=== PATIENT | female | born 1970 | race African-American/Black ===

== ENCOUNTER 2021-07-03 11:43 | Emergency (ER) | payer OTHER, BC, SELFPAY ==
--- NOTE | ~2021-07-03 | XR_ITS ---
EXAMINATION: XR forearm RT 2V EXAM DATE: 07/03/2021 14:00 INDICATION: Initial encounter following injury, with pain of the right forearm. TECHNIQUE: Right forearm frontal and lateral projections obtained and reviewed. There is no prior st udy for comparison. FINDINGS: No elbow joint effusion. There are no acute o fractures or dislocations identified. There is no subcutaneous gas. The soft tissue is unremarkable. There are no radiopaque foreign bodies. IMPRESSION: 1. XR forearm RT 2V exam without acute osseous findings. Reviewed, dictated and finalized at location A.
[2021-07-03 12:45] VITALS: BP 133/84; PULSE 71; RESP 16; TEMP 36.4; O2SAT 100
[2021-07-03] MEDS: IBUPROFEN 400 MG TABLET 800 MG PO (14:22)
--- NOTE | 2021-07-03 14:47 | ED.GENADULT ---
HPI - General Adult General Chief complaint: Extremity Injury, Upper Stated complaint: right wrist/hip pain Source: patient Mode of arrival: ambulatory Limitations: no limitations History of Present Illness HPI narrative: Patient is a 50-year-old -[place] female who presents to the [facility] via POV for evaluation of right hand and wrist injury that occurred this morning at 9:30 AM. Patient reports she was walking at school when she accidentally slipped on a wet floor. She also reports having low back pain and bilateral hip pain. Pain is constant and aching and a sore in nature. Unable to identify alleviating factors stating, I did not do anything for it I just came here . Pain worsens with when moving from sitting to standing position. She is requesting documentation for work absence. She is also requesting a primary care provider for this problem. Related Data Allergies Allergy/AdvReac Type Severity Reaction Status Date / Time No Known Allergies Allergy Verified 07/03/21 13:54 Review of Systems Review of Systems: Pertinent negatives: fever, chills, sweats, change in appetite, poor p.o. intake, malaise, calf tenderness, skin color changes, rash, warmth, swelling, numbness, tingling, loss of sensation, deformity, decreased range of motion, weakness, difficulty with ambulation/coordination, nausea, vomiting, lymphadenopathy, shortness of breath, chest pain, heart palpitations, and heart murmur. PMFSH Comments I have reviewed and agree with the patient's past medical, surgical, social, and family hx as documented by the RN. There is no relevant family history pertinent to the presenting complaint. Exam Narrative: GENERAL: Well-appearing, well-nourished, and in no acute distress. HEAD: Normocephalic, atraumatic. NECK: Supple. No Lymphadenopathy or nuchal rigidity appreciated. CHEST: Bilateral lung felton are clear to auscultation. No respiratory distress. No evidence of cough or pleuritic cp upon examination. HEART: Regular rate and rhythm. No murmur, gallop, or rub heard. BACK: Moderate pain elicited with all movement. Full ROM. No evidence of deformity, spasm, mass, spinal tenderness, or swelling. Bilateral SLR tests negative. Slowed gait. Patient ambulates hunched over. EXTREMITIES: Severe pain elicited to right wrist and right hand, bilateral hips, and right low back with any movement or palpation. Male evidence of decreased ROM, swelling, cyanosis, hematoma, laceration, abrasion, deformity, rash, or puncture. No evidence of pain with active/passive ROM. No evidence of dislocation, ligament laxity, effusion, or pain at rest. Pulses palpable at 2+, strength 5/5, and cap refill < 3 seconds in affected extremity. DTRs normal. Gait normal. SKIN: Warm, dry, no rash. NEURO: No focal deficits. Alert and oriented x3. SPECIAL OBSERVATIONS: Hyper-dramatic pain response Course Vital Signs Vital signs: Vital Signs Temperature 97.6 F 07/03/21 12:45 Pulse Rate 71 07/03/21 12:45 Respiratory Rate 16 07/03/21 12:45 Blood Pressure 133/84 07/03/21 12:45 Pulse Oximetry 100 07/03/21 12:45 Temperature 97.6 F 07/03/21 12:45 Pulse Rate 71 07/03/21 12:45 Respiratory Rate 16 07/03/21 12:45 Blood Pressure 133/84 07/03/21 12:45 Pulse Oximetry 100 07/03/21 12:45 Due to an elevated blood pressure, I had a detailed discussion with the patient and/or guardian regarding the need for follow-up with their primary care provider within the next 3-4 days. Patient verbalized understanding and agreed. Procedures Orthopedic Splinting/Casting Injury #1: Splinting/Casting Date: 07/03/21 Splinting/Casting Time: 15:06 Side: right Upper Extremity Injury Location: wrist and hand Upper Extremity Immobilizer: Naveen wrap Pre-Procedure Neuro Vascular Exam: normal Post-Procedure Neuro Vascular Exam: normal Medical Decision Making Differential Diagnosis Differential Diagnosi
== END 2021-07-03 15:25 | disposition home or self-care (01) ==
PROVIDERS: Emergency Provider Nurse Practitioner Family
DX: S63.501A Unspecified sprain of right wrist, initial encounter (principal); W01.0XXA Fall on same level from slipping, tripping and stumbling without subsequent striking against object, initial encounter; M25.552 Pain in left hip; M25.551 Pain in right hip; M54.5 Low back pain
CPT/HCPCS: 73090; 99213; A9270; G0463

== ENCOUNTER 2021-07-13 10:19 | Emergency (ER) | payer OTHER, SELFPAY ==
[2021-07-13 10:27] VITALS: BP 119/78; PULSE 100; RESP 16; TEMP 36.7; O2SAT 99
--- NOTE | 2021-07-13 10:37 | ED.GENADULT ---
HPI - General Adult General Chief complaint: Back Pain/Injury Stated complaint: back pain Source: patient Mode of arrival: ambulatory Limitations: no limitations History of Present Illness HPI narrative: Patient is a 50-year-old -[place] female who presents to the [facility] via POV for evaluation of right hand and wrist pain secondary to a work-related injury that occurred the morning of July 03, 2021. She was initially seen at this clinic for an evaluation of a right hand, low back pain, and bilateral hip pain. She was prescribed Flexeril at that visit. Today she states she is here for her low back pain. She states her right hand pain is improving. She reports her right hand has an intermittent numbness and tingling sensation. She reports her back pain is constantly achy and intermittently sharp. She also reports a burning sensation in bilateral low back. Back is stiff with prolonged sitting. She also reports prolonged walking and prolonged standing worsens back pain. No relief with ibuprofen or Aleve stating. Flexeril provided minimal relief although causes her moderate sedation therefore she is unable to take this medication while at work stating, I am fishing for something . She has an appointment on July 23 with the 07/03 referred PCP stating, I need FMLA . Related Data Allergies Allergy/AdvReac Type Severity Reaction Status Date / Time No Known Allergies Allergy Verified 07/03/21 13:54 Review of Systems Review of Systems: Pertinent negatives fever, chills, sweats, change in appetite, poor p.o. intake, malaise, skin color changes, rash, warmth, swelling, loss of sensation, deformity, bowel/bladder incontinence, decreased range of motion, weakness, difficulty with ambulation/coordination, nausea, vomiting, lymphadenopathy, shortness of breath, chest pain, heart palpitations, and heart murmur. Exam Narrative: GENERAL: Well-appearing, well-nourished, and in no acute distress. HEAD: Normocephalic, atraumatic. NECK: Supple. No Lymphadenopathy or nuchal rigidity appreciated. CHEST: Bilateral lung felton are clear to auscultation. No respiratory distress. No evidence of cough or pleuritic cp upon examination. HEART: Regular rate and rhythm. No murmur, gallop, or rub heard. BACK: Moderate pain elicited to bilateral low back with all movement. Full ROM. No evidence of deformity, spasm, mass, spinal tenderness, or swelling. Bilateral SLR tests negative. Slowed gait. No evidence of with ambulation. EXTREMITIES: No evidence of decreased ROM, swelling, cyanosis, hematoma, laceration, abrasion, deformity, rash, or puncture. No evidence of pain with active/passive ROM. No evidence of dislocation, ligament laxity, effusion, or pain at rest. Pulses palpable at 2+, strength 5/5, and cap refill < 3 seconds in affected extremity. DTRs normal. Gait normal. SKIN: Warm, dry, no rash. NEURO: No focal deficits. Alert and oriented x3. Course Vital Signs Vital signs: Vital Signs Temperature 98.0 F 07/13/21 10:27 Pulse Rate 100 07/13/21 10:27 Respiratory Rate 16 07/13/21 10:27 Blood Pressure 119/78 07/13/21 10:27 Pulse Oximetry 99 07/13/21 10:27 Temperature 98.0 F 07/13/21 10:27 Pulse Rate 100 07/13/21 10:27 Respiratory Rate 16 07/13/21 10:27 Blood Pressure 119/78 07/13/21 10:27 Pulse Oximetry 99 07/13/21 10:27 Medical Decision Making Vital Signs Vital Signs: Vital Signs Temperature 98.0 F 07/13/21 10:27 Pulse Rate 100 07/13/21 10:27 Respiratory Rate 16 07/13/21 10:27 Blood Pressure 119/78 07/13/21 10:27 Pulse Oximetry 99 07/13/21 10:27 Temperature 98.0 F 07/13/21 10:27 Pulse Rate 100 07/13/21 10:27 Respiratory Rate 16 07/13/21 10:27 Blood Pressure 119/78 07/13/21 10:27 Pulse Oximetry 99 07/13/21 10:27 Discharge Plan Discharge Clinical Impression: Low back pain Qualifiers: Chronicity: unspecified Back pain laterality: unspecified S
== END 2021-07-13 11:20 | disposition home or self-care (01) ==
PROVIDERS: Emergency Provider Nurse Practitioner Family
DX: M54.50 Low back pain, unspecified (principal)
CPT/HCPCS: 99213; G0463

== ENCOUNTER → 2021-07-18 10:31 | Outpatient (CLI) | payer OTHER, SELFPAY ==
--- NOTE | ~2021-07-18 | XR_ITS ---
XR wrist RT min 3V DATE: 07/18/2021 10:51 INDICATION: Fall. Right wrist injury, pain TECHNIQUE: 4 views COMPARISON: None FINDINGS: No fracture or dislocation, periosteal reaction or bone destruction. No erosive change or c hondrocalcinosis. IMPRESSION: No significant abnormality Reviewed, dictated and finalized at location B. IMPRESSION: No significant abnormality
--- NOTE | ~2021-07-18 | XR_ITS ---
XR hand RT min 3V DATE: 07/18/2021 10:51 INDICATION: Right hand or wrist pain following fall TECHNIQUE: 3 views COMPARISON: None FINDINGS: No fracture or dislocation, periosteal reaction or bone destruction or erosive change or ch ondrocalcinosis. Joint spaces are preserved. IMPRESSION: Negative Reviewed, dictated and finalized at location B. IMPRESSION: Negative
== END ==
PROVIDERS: PCP Emergency Medicine; Visit Provider Emergency Medicine
DX: M25.531 Pain in right wrist (principal); M25.541 Pain in joints of right hand
CPT/HCPCS: 73110; 73130

== ENCOUNTER 2022-06-25 15:54 | Emergency (ER) | payer BC, SELFPAY ==
[2022-06-25 16:01] VITALS: BP 102/74; PULSE 73; RESP 16; TEMP 36.3; O2SAT 99
--- NOTE | 2022-06-25 16:43 | ED.GENADULT ---
HPI - General Adult General Chief complaint: Skin/Abscess/Foreign Body Stated complaint: rash Source: patient Mode of arrival: ambulatory Limitations: no limitations History of Present Illness HPI narrative: Patient presents for evaluation of pruritic rash to the face and neck for the last week. No new lotions, soaps, detergents, topical products. No history of similar symptoms. She has been outdoors but does not remember being exposed to poison rika/oak/sumac. She has been applying calamine and also taking 50mg benadryl orally every four hours for her symptoms. No additional complaints or concerns. Related Data Allergies Allergy/AdvReac Type Severity Reaction Status Date / Time No Known Allergies Allergy Verified 06/25/22 16:29 Review of Systems Review of Systems: CONSTITUTIONAL: Denies fever, chills, or sweats. EYES: Denies visual changes, redness, or discharge. ENT: Denies rhinorrhea, congestion, sore throat, or otalgia. CARDIOVASCULAR: Denies chest pain, palpitations, or edema. RESPIRATORY: Denies cough or dyspnea. GASTROINTESTINAL: Denies abdominal pain, nausea, vomiting, or diarrhea. GENITOURINARY: Denies dysuria or hematuria. SKIN: Reports pruritic rash to neck and face MUSCULOSKELETAL: Denies back pain, joint pain, or myalgia. NEUROLOGIC: Denies headache, numbness, dizziness, or weakness. PSYCHIATRIC: Denies anxiety or depression. [facility] Past Medical History Medical History (Updated 06/25/22 @ 16:47 by Storm Navarrete, [facility], ) No pertinent past medical history Surgical History Surgical History No pertinent past surgical history Family History Family History Mother Family history non-contributory Social History Social History Smoking status: Never smoker Substance use: never Gender identity (if verbalized by the patient): Female Spiritual care concerns: No Exam Narrative: GENERAL: Well-appearing, well-nourished, and in no acute distress. HEAD: Normocephalic, atraumatic. EYES: PERRLA and EOMI. ENT: Nares clear, no rhinorrhea or epistaxis. Mucous membranes moist. Oropharynx without tonsillar hypertrophy exudate or other lesions. Bilateral TMs pearly viera nonbulging NECK: Supple. No adenopathy or masses. No carotid bruits or JVD CHEST: Clear to auscultation. No respiratory distress. No wheezes rales or rhonchi HEART: Regular rate and rhythm. No murmur heard. Normal peripheral pulses. ABDOMEN: Soft, nontender, nondistended, normal active bowel sounds. EXTREMITIES: Normal range of motion. No edema. SKIN: Slightly raised, fine, erythematous sandpaper rash to face and neck NEURO: No focal deficits. Alert and oriented x3. PSYCH: Normal mood and affect. Course Course Emergency Course: This is a 51-year-old female who presented for evaluation of a rash for the last week. Rash is a sandpaperlike quality. I did confirm multiple times that patient does not have a sore throat consistent with strep pharyngitis. On physical exam her posterior pharynx appears normal. Etiology of symptoms unclear. She was given Solu-Medrol while here. She will be discharged with prednisone. Changed Benadryl to Vistaril. Follow-up outpatient for further evaluation and treatment and go to the ER for worsening symptoms. Patient in agreement with plan of care. Level of Care: Express Care Visit Vital Signs Vital signs: Vital Signs Temperature 36.3 C L 06/25/22 16:01 Pulse Rate 73 06/25/22 16:01 Respiratory Rate 16 06/25/22 16:01 Blood Pressure 102/74 06/25/22 16:01 Pulse Oximetry 99 06/25/22 16:01 Oxygen Delivery Room Air 06/25/22 16:01 Temperature 36.3 C L 06/25/22 16:01 Pulse Rate 73 06/25/22 16:01 Respiratory Rate 16 06/25/22 16:01 Blood Pressure 102/74 06/25/22 16:01 Pulse Oximetry 99 06/25
[2022-06-25] MEDS: methylPREDNISolone SOD SUCC 125 MG VIAL IM (16:54)
== END 2022-06-25 17:03 | disposition home or self-care (01) ==
PROVIDERS: Emergency Provider Nurse Practitioner
DX: R21 Rash and other nonspecific skin eruption (principal)
CPT/HCPCS: 96372; 99213; G0463; J2930

== ENCOUNTER 2022-07-01 11:58 | Emergency (ER) | payer BC, SELFPAY ==
--- NOTE | 2022-07-01 12:05 | ED.URI ---
HPI - URI/Sore Throat General Chief Complaint: Weakness Stated Complaint: SOB, Blurry Vision, Headaches Time Seen by Provider: 07/01/22 12:06 Source: patient Mode of arrival: ambulatory Limitations: no limitations History of Present Illness HPI Narrative: Ms. Loredo is a 51-year-old female patient presenting to the clinic today with complaints of shortness of breath, blurry vision, and headaches x1 week. She reports she has been taking iron pills over the last week because she feels as though she may be anemic. States that the iron pills have been making her feel constipated as well. States that she is having shortness of breath with exertion, headaches, extreme fatigue, and blurry vision. She is requesting blood work to be done. Related Data Home Medications Medication Instructions Recorded Confirmed No Home Medications 07/01/22 07/01/22 Allergies Allergy/AdvReac Type Severity Reaction Status Date / Time No Known Allergies Allergy Verified 07/01/22 12:17 Review of Systems Review of Systems: Pertinent positives per HPI. Patient denies any fever, chills, rash, dizziness, cough, runny nose, sore throat, chest pain, palpitations, nausea, vomiting, diarrhea, constipation, abdominal pain, or any urinary issues. [facility] Past Medical History Medical History (Updated 07/01/22 @ 14:02 by Jo Ann Bansal MD) Anemia Surgical History Surgical History No pertinent past surgical history Family History Family History Mother Family history non-contributory Social History Social History Smoking status: Never smoker Substance use: never Gender identity (if verbalized by the patient): Female Spiritual care concerns: No Comments At the time of my signature, I reviewed and agree with the nursing past medical, surgical, social, and family history. There is no relevant family history pertinent to the patient complaint. Exam Narrative: General: Well-developed, well nourished, in no apparent distress Head: Normocephalic, atraumatic Eyes: Pupils equally round and reactive to light bilaterally, EOM intact, sclera and conjunctive clear, no discharge, lids normal Ears: TMs intact and clear, ear canals clear, no drainage, grossly hearing normal. Nose: Nares patent, no discharge, no inflammation, no sinus tenderness. Mouth: Oropharynx without lesions or masses, good dentition, MMM. Neck: Supple, trachea midline, no enlargement of anterior or posterior cervical nodes, no thyroid masses or goiter palpable. Cardio: Regular rate and rhythm, s1 and s2 normal, no murmur appreciated. Resp: Clear to auscultation bilaterally anteriorly and posteriorly, no rhonchi, rales, wheezing or rubs Course Course Emergency Course: Portions of this record may have been created with voice recognition software. Level of Care: Express Care Visit Vital Signs Vital signs: Vital Signs Temperature 36.2 C L 07/01/22 12:10 Pulse Rate 69 07/01/22 12:10 Respiratory Rate 16 07/01/22 12:10 Blood Pressure 143/75 H 07/01/22 12:10 Pulse Oximetry 100 07/01/22 12:10 Oxygen Delivery Room Air 07/01/22 12:10 Temperature 36.2 C L 07/01/22 12:10 Pulse Rate 69 07/01/22 12:10 Respiratory Rate 16 07/01/22 12:10 Blood Pressure 143/75 H 07/01/22 12:10 Pulse Oximetry 100 07/01/22 12:10 Oxygen Delivery Room Air 07/01/22 12:10 Vital signs reviewed MDM - URI/Sore Throat MDM Narrative Medical decision making narrative: At the time of visit patient is resting comfortably on the exam table. EKG was performed and show normal sinus rhythm heart rate 64 bpm. Blood sugar was 135 in the clinic today. Patient would like to be transferred to the ED for further evaluation/blood work-up. Contacted Storm GARG at [facility] ED and he
[2022-07-01 12:10] VITALS: BP 143/75; PULSE 69; RESP 16; TEMP 36.2; O2SAT 100
--- NOTE | 2022-07-01 12:19 | ECG_ITS ---
Measurements Intervals [place] Rate: 64 P: 68 GA: 195 QRS: 49 QRSD: 82 T: 52 QT: 396 QTc: 410 Interpretive Statements SINUS RHYTHM T WAVE ABNORMALITY IN ANTERIOR LEADS- CONSIDER ISCHEMIA ABNORMAL ECG NO PREVIOUS ECG AVAILABLE FOR COMPARISON Electronically Signed On 07-01-2022 13:15:19 CDT by Anderson Godwin D.O.
[2022-07-01 12:28] LABS: Glucose Point of Care 135 mg/dl (65-105)
== END 2022-07-01 12:32 | disposition short-term general hospital (02) ==
PROVIDERS: Emergency Provider Nurse Practitioner Family; PCP Registered Nurse
DX: H53.8 Other visual disturbances (principal); R06.02 Shortness of breath; R53.83 Other fatigue
CPT/HCPCS: 82948; 93005; 99213; G0463

== ENCOUNTER 2022-07-01 12:47 | Emergency (ER) | payer BC, SELFPAY ==
[2022-07-01] VITALS (14 sets, daily range): BP systolic 157–180; BP diastolic 87–88; PULSE 63–73; RESP 15–23; TEMP 36.4; O2SAT 95–100
--- NOTE | ~2022-07-01 | XR_ITS ---
EXAMINATION: XR chest 2V 07/01/2022 13:32 INDICATION: Shortness of breath for 3 days PROCEDURE: 2 view chest COMPARISON: No prior studies for comparison. FINDINGS: The lungs are clear. The cardiomediastinal silhouette is within normal limits. There are no pleural effusions. There is no pneumothorax suspected. IMPRESSION: 1: NO ACUTE CARDIOPULMONARY DISEASE. Reviewed, dictated and finalized at location B.
--- NOTE | 2022-07-01 12:56 | ECG_ITS ---
Measurements Intervals [place] Rate: 64 P: 68 [place]: 190 QRS: 38 QRSD: 80 T: 46 QT: 395 QTc: 410 Interpretive Statements SINUS RHYTHM BORDERLINE ST-T WAVE ABNORMALITY- ANTERIOR LEADS BORDERLINE ECG COMPARED TO ECG 07/01/2022 12:31:08 NO SIGNIFICANT CHANGES Electronically Signed On 07-01-2022 13:16:02 CDT by Anderson Godwin D.O.
[2022-07-01 13:16] LABS: Basophils Absolute Auto 0.1 K/mm3 (0.0-0.1); Basophils Percent Auto 0.6 % (0.2-1.2); Eosinophils Absolute Auto 0.1 K/mm3 (0-0.3); Eosinophils Percent Auto 1.1 % (0-4.4); Hematocrit 33.4 % (37.0-47.0); Hemoglobin 10.2 g/dL (12.0-15.0); Immature Granulocyte Absolute 0.09 K/mm3 (0.00-0.031); Immature Granulocyte Percent A 0.7 % (0-0.5); Lymphocytes Absolute Auto 2.45 K/mm3 (0.9-3.2); Lymphocytes Percent Auto 19.9 % (18.3-44.2); Mean Corpuscular HGB Conc 30.5 g/dl (32-36); Mean Corpuscular Hemoglobin 21.4 pg (26-34); Mean Corpuscular Volume 70.2 fl (80-100); Mean Platelet Volume 9.3 fl (7.4-10.4); Monocytes Absolute Auto 1.1 K/mm3 (0.1-0.6); Monocytes Percent Auto 8.9 % (2.6-8.5); Neutrophils Absolute Auto 8.5 K/mm3 (1.3-6.7); Neutrophils Percent Auto 68.8 % (45.5-73.1); Platelet Count Result 329 k/mm3 (150-375); Red Blood Count 4.76 M/mm3 (4.2-5.4); Red Cell Distribution Width 23.6 % (11.5-14.5); White Blood Count 12.3 K/mm3 (4.5-10.0)
[2022-07-01 13:32] LABS: Platelet Estimate Adequate (Adequate)
[2022-07-01 13:33] LABS: Microcytosis 1+ (NORMAL); Schistocytes None Seen (NORMAL)
[2022-07-01 13:35] LABS: Alanine Aminotransferase 39 U/L (6-35); Alkaline Phosphatase 56 U/L (38-126); Anion Gap 9 mmol/L (8-16); Aspartate Amino Transferase 27 U/L (14-36); Bilirubin,Total 0.4 mg/dL (0.2-1.3); Blood Urea Nitrogen 12 mg/dL (7-17); Calcium 8.8 mg/dL (8.4-10.2); Carbon Dioxide 28 mmol/L (22-30); Chloride 98 mmol/L (98-107); Estimated CRCL calculation 71 ml/min; Estimated Glomerular Filt Rate > 60; Glucose 100 mg/dL (65-110); Potassium 2.7 mmol/L (3.4-5.0); Sodium 135 mmol/L (137-145)
--- NOTE | 2022-07-01 13:53 | ED.SOB ---
HPI - SOB/Dyspnea General Chief Complaint: Shortness of Breath/Dyspnea Stated Complaint: sob, blurred vision x 4 days Time Seen by Provider: 07/01/22 13:02 Source: patient and RN notes reviewed Mode of arrival: ambulatory Limitations: no limitations History of Present Illness HPI Narrative: This is a 51 year old female who presents for shortness of breath. She reports fatigue for 3 days with shortness of breath with exertion. She also reports dull ache frontal headache for 3 days. She has no focal weakness. She denies fever, chills, chest pain, nausea, vomiting, diarrhea. She reports history of anemia and she started taking iron 1 week ago. She reports abdominal bloating and constipation. Related Data Allergies Allergy/AdvReac Type Severity Reaction Status Date / Time No Known Allergies Allergy Verified 07/01/22 12:17 Review of Systems Review of Systems: All systems reviewed & are unremarkable except as noted in HPI and below Constitutional: Constitutional: Denies chills, Reports fatigue and Denies fever(s) Eyes: Eyes: Reports change in vision and Denies photophobia ENT: Denies nasal congestion and Denies sore throat Cardiovascular: Cardiovascular: Denies chest pain and Denies radiating jaw, neck or arm pain Respiratory: Respiratory: Denies cough and Reports dyspnea Gastrointestinal: Gastrointestinal: Denies abdominal pain, Reports constipation and Reports nausea Neurologic: Denies syncope, Reports headache(s) and Denies focal weakness PMFSH Past Medical History Medical History (Updated 07/01/22 @ 16:23 by Jo Ann Bansal MD) Anemia Surgical History Surgical History No pertinent past surgical history Family History Family History Mother Family history non-contributory Social History Social History Smoking status: Never smoker Substance use: never Gender identity (if verbalized by the patient): Female Spiritual care concerns: No Exam Narrative: GENERAL: Well-appearing, well-nourished, and in no acute distress. HEAD: Normocephalic, atraumatic EYES: PERRLA and EOMI, conjunctiva clear without discharge EARS: TM's clear bilaterally without erythema or dullness NOSE: Nares clear, no rhinorrhea or epistaxis THROAT:Mucous membranes moist, Oropharynx normal without erythema, exudate, peritonsillar swelling or fluctuance NECK: Supple, without lymphadenopathy or mass RESPIRATORY: No respiratory distress, Airway patent, Respirations non-labored, Clear to auscultation without rales, rhonchi or wheeze HEART: Regular rate and rhythm. No murmur heard. Normal peripheral pulses. ABDOMEN: Soft, nontender, nondistended, normal active bowel sounds. No masses. No rebound or guarding, No organomegaly. EXTREMITIES: No edema, normal strength with full range of motion. SKIN: Warm, dry, normal color without rash NEURO: Alert and oriented x3. CN 2-12 grossly intact. No focal deficits. PSYCH: Normal mood and affect. Course Reevaluation(s) Reevaluation #1: I reviewed patient's labs and imaging. Vitals have been unremarkable. She feels better. She will be discharged home.. She is aware of anemia and hypokalemia. She has appointment with doctor on . She will have them to check her potassium. Date: 07/01/22 Time: 16:20 Vital Signs Vital signs: Vital Signs Pulse Rate 66 07/01/22 13:01 Respiratory Rate 20 07/01/22 13:01 Temperature 97.5 F L 07/01/22 13:04 Pulse Rate 73 07/01/22 16:35 Respiratory Rate 18 07/01/22 16:35 Blood Pressure 180/87 H 07/01/22 16:35 Pulse Oximetry 99 07/01/22 16:35 Oxygen Delivery Room Air 07/01/22 13:27 MDM - SOB/Dyspnea Lab Data Attestation: I reviewed the patient's lab results. Result diagrams: 07/01/22 13:09
[2022-07-01 14:11] LABS: Magnesium 2.1 mg/dL (1.6-2.3)
[2022-07-01 14:24] LABS: NT Pro B Type Natriuretic Pept 75 pg/mL (5-100); Troponin I < 0.012 ng/mL (0.000-0.034)
[2022-07-01 14:33] LABS: SARS-CoV-2 RNA PCR Negative
[2022-07-01 14:40] LABS: D Dimer 0.39 ug/mL (<0.48)
[2022-07-01] MEDS: SODIUM CHLORIDE 0.9% IV 1,000 ML 999 ML IV CONT (14:43)
[2022-07-01] MEDS: POTASSIUM CHLORIDE 20 MEQ TABLET 40 MEQ PO (14:43)
[2022-07-01] MEDS: KETOROLAC 30 MG/ML VIAL (*BKC) IV PUSH (15:17)
== END 2022-07-01 16:37 | disposition home or self-care (01) ==
PROVIDERS: Emergency Medicine; Emergency Provider General Practice; PCP Registered Nurse
DX: D64.9 Anemia, unspecified (principal); E87.6 Hypokalemia; Z20.822 Contact with and (suspected) exposure to COVID-19; R94.31 Abnormal electrocardiogram [ECG] [EKG]
CPT/HCPCS: 36415; 71046; 80053; 83735; 83880; 84484; 85025; 85380; 93005; 96361; 96374; 99284; A9270; C9803; J1885; J7030; U0003; U0005

== ENCOUNTER 2024-05-26 19:41 | Emergency (ER) | payer BC, SELFPAY ==
[2024-05-26 19:49] VITALS: BP 123/84; PULSE 73; RESP 20; TEMP 37; O2SAT 100
--- NOTE | 2024-05-26 19:50 | ED.SKABFB ---
HPI - Skin/Abscess/Foreign Bdy General Chief complaint: Skin/Abscess/Foreign Body Stated complaint: Rash Time Seen by Provider: 05/26/24 19:50 Source: patient, RN notes reviewed and old records reviewed Mode of arrival: ambulatory Limitations: no limitations History of Present Illness HPI narrative: 53-year-old female presents to the [facility] with complaints of a dry patchy area to the left lower quadrant of the abdomen. Reports that she has tried hydrocortisone, Neosporin to the area. A dry patch to the medial aspect right foot/heel Symptoms started approximately 1 week ago Related Data Home Medications Medication Instructions Recorded Confirmed No Home Medications 05/26/24 05/26/24 Allergies Allergy/AdvReac Type Severity Reaction Status Date / Time No Known Allergies Allergy Verified 05/26/24 19:46 Review of Systems Review of Systems: All systems reviewed & are unremarkable except as noted in HPI and below Constitutional: Constitutional: Reports no additional constitutional complaints Eyes: Eyes: Reports no additional eye complaints ENT: Reports system reviewed and no additional complaints, except as documented Cardiovascular: Cardiovascular: Reports no additional cardiovascular complaints, Denies chest pain and Denies dyspnea Respiratory: Respiratory: Reports no additional respiratory complaints, Denies chest congestion, Denies cough and Denies dyspnea Gastrointestinal: Gastrointestinal: Reports no additional gastrointestinal complaints, Denies abdominal pain, Denies nausea and Denies vomiting Musculoskeletal: Musculoskeletal: Reports no additional musculoskeletal complaints Integumentary/Breasts: Skin/Breast: Reports as per HPI Neurologic: Reports system reviewed and no additional complaints, except as documented Psychiatric: Psychiatric: Reports no additional psychiatric complaints Allergic/Immunologic: Allergic/Immunologic: Reports no additional allergic/immunologic complaints [facility] Past Medical History Medical History Anemia Surgical History Surgical History No pertinent past surgical history Family History Family History Mother Family history non-contributory Social History Social History Smoking status: Never smoker Substance use: never Gender identity (if verbalized by the patient): Female Spiritual care concerns: No Comments At the time of my signature, I reviewed and agree with the nursing past medical, surgical, social, and family history. There is no relevant family history pertinent to the patient complaint. Exam Const: General: cooperative, healthy appearing, comfortable, no acute distress, well developed, alert and well nourished Nutritional Appearance: well nourished Orientation/consciousness: patient oriented x3 Limitations: no limitations HENMT: Head: normal to inspection Ears: hearing grossly normal bilaterally and external ears normal Face/Nose/Sinus: Normal external nose present, Normal nares present, Normal nasal mucous membranes and turbinates present, normal facial exam and face symmetric Face and sinus: normal facial exam and face symmetric Eyes: General: appearance normal, both eyes and all related structures Alignment and Position: alignment normal Periorbital: periorbital findings normal Pupils: Equal, round and reactive pupils present EOM: EOMs intact bilaterally Neck: Neck: normal visual inspection, full ROM, no lymphadenopathy and no meningeal signs Chest: Chest palpation & inspection: normal inspection of the chest Resp: Effort & Inspection: normal respiratory effort and able to speak in complete sentences Auscultation: clear to auscultation bilaterally, no crackles, no rales, no rhonchi and no wheezes Cardio: Rate: r
== END 2024-05-26 20:05 | disposition home or self-care (01) ==
PROVIDERS: Emergency Provider Nurse Practitioner; PCP Registered Nurse
DX: L30.9 Dermatitis, unspecified (principal)
CPT/HCPCS: 99213; G0463

== ENCOUNTER 2024-10-07 15:48 | Emergency (ER) | payer OTHER, BC, SELFPAY ==
[2024-10-07 16:05] VITALS: BP 155/91; PULSE 94; RESP 16; TEMP 36.8; O2SAT 100
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
== END 2024-10-07 17:15 | disposition home or self-care (01) ==
PROVIDERS: Emergency Provider Nurse Practitioner Family; PCP Registered Nurse
DX: M54.9 Dorsalgia, unspecified (principal); V89.2XXA Person injured in unspecified motor-vehicle accident, traffic, initial encounter
CPT/HCPCS: 99213; G0463

== ENCOUNTER 2025-06-11 08:17 | Emergency (ER) | payer BC, SELFPAY ==
[2025-06-11 08:30] VITALS: BP 156/84; PULSE 73; RESP 20; TEMP 36.7; O2SAT 97
--- NOTE | 2025-06-11 08:40 | ED_ITS ---
HPI - Female Genitourinary General Chief complaint: Urogenital-Female Stated complaint: urinary irritation Time Seen by Provider: 06/11/25 08:19 patient presents to the [facility] with complaints urinary frequency, bladder pressure, and burning with urination that began 1 week ago. Patient reports she has had some leakage and has been wearing panty liners in the last 2 days has had some vaginal irritation and discharge believes to be related to yeast infection the panty liners. Noted she has been drinking cranberry juice without relief of symptoms. Denies history of frequent UTI or hard to treat UTI. Denies fever, chills, body aches, abdominal pain lower back pain, flank pain, blood in urine, nausea, vomiting, diarrhea. Related Data Allergies Allergy/AdvReac Type Severity Reaction Status Date / Time No Known Allergies Allergy Verified 06/11/25 08:25 Review of Systems Constitutional: Constitutional: Reports as per HPI, Denies chills and Denies fatigue Eyes: Eyes: Reports no additional eye complaints Cardiovascular: Cardiovascular: Reports no additional cardiovascular complaints Respiratory: Respiratory: Reports no additional respiratory complaints Gastrointestinal: Gastrointestinal: Reports as per HPI, Denies abdominal pain ( Bladder pressure), Denies diarrhea, Denies nausea and Denies vomiting Genitourinary: Genitourinary: Reports as per HPI, Denies abnormal vaginal bleeding, Denies hematuria, Reports nocturia, Denies genital lesions, Reports dysuria, Denies pelvic pain, Denies flank pain, Reports urinary incontinence and Reports vaginal discharge Musculoskeletal: Musculoskeletal: Reports as per HPI and Denies back pain Integumentary/Breasts: Skin/Breast: Reports as per HPI, Denies pruritus, Denies erythema and Denies rash Neurologic: Reports as per HPI, Denies vertigo, Denies dizziness, Denies syncope, Denies headache(s), Denies numbness and Denies weakness Psychiatric: Psychiatric: Reports no additional psychiatric complaints Endocrine: Endocrine: Reports no additional endocrine complaints Hematologic/Lymphatic: Hematologic/Lymphatic: Reports no additional hematologic/lymphatic complaints Allergic/Immunologic: Allergic/Immunologic: Reports no additional allergic/immunologic complaints PMFSH Past Medical History Medical History Anemia Surgical History Surgical History No pertinent past surgical history Family History Family History Mother Family history non-contributory Social History Social History Smoking status: Never smoker Substance use: never Gender identity (if verbalized by the patient): Female Spiritual care concerns: No Exam Const: General: healthy appearing and no acute distress Nutritional Appearance: well nourished Orientation/consciousness: patient oriented x3 Limitations: no limitations Resp: Effort & Inspection: normal respiratory effort Auscultation: clear to auscultation bilaterally Cardio: Rate: regular rate Rhythm: regular rhythm GI: Inspection: non-distended GI Palp: Yes Soft to palpation, No Tenderness to palpation present (GI), No Guarding due to palpation present (GI), No Rigid due to palpation and No Hernia present Auscultation: normal bowel sounds : General: Yes bladder normal to palpation and Yes no CVA tenderness Back/Spine/Pelvis: Back: no CVA tenderness Skin: General skin exam: normal color Rashes: no rashes Wounds: no wounds Neuro: General: patient oriented x3 Speech: normal speech Gait exam (Neuro): Normal gait present Psych: Appearance: grossly normal Mental Status: mental status grossly normal Affect: normal affect Attitude: cooperative Course Course Level of Care: Express Care Visit Vital Signs Vital signs: Vital Signs Temperature 98.0 F 06/11/25 08:30 Pulse Rate 73 06/11/25 08:30 Respiratory Rate 20 06/11/25 08:30 Blood Pressure 156/84 H 06/11/25 08:30 Pulse Oximetry 97 06/11/25 08:30 Oxygen Delivery Room Air 06/11/25 08:30 Temperature 98.0 F 06/11/25 08:30 Pulse Rate 73 06/11/25 08:30 Respiratory Rate 20 06/11/25 08:30 Blood Pressure 156/84 H 06/11/25 08:30 Pulse Oximetry 97 06/11/25 08:30 Oxygen Delivery Room Air 06/11/25 08:30 MDM - Female Genitourinary MDM Narrative Medical decision making narrative: The patient was evaluated by myself in the express care. History is obtained from patient who is an independent historian and physical exam was performed. Available medical records were reviewed at this time. Exam findings show no acute concerns or changes; patient is non-toxic appearing and is in no distress. Patient is appropriate for outpatient treatment and follow-up. I have evaluated and discussed social determinants of health with the patient that could potentially impact subsequent diagnosis and treatment plans. Differential diagnosis and treatment plan were discussed with the patient. Patient agrees with discussion and after shared medical decision making agrees with plan of care. All questions were answered to the patient's satisfaction. Differential Diagnosis Differential diagnosis: Likely urinary tract infection, cervicitis, vaginitis and cystitis Medical Records Attestation: I reviewed the patient's medical records. Lab Data Attestation: I reviewed the patient's lab results. Lab results narrative: hematuria noted send culture Discharge Plan Discharge Clinical Impression: Cystitis Patient Disposition: Home Condition: Stable Instructions: Antibiotic Form, Urinary Tract Infection in Women (ED), Dysuria (ED) Additional Instructions: We will send a urine culture off to the lab; if the culture identifies an organism that the prescribed antibiotic will not treat, you will receive a phone call from an urgent care staff member and an appropriate antibiotic will be prescribed. -Your symptoms should begin to improve within a day of starting antibiotics. But you should finish all the antibiotic pills you get. Otherwise your infection might come back. -Also recommend: drink more fluid. It might help flush out germs, and it does no harm -Tylenol/ibuprofen as needed for pain -Follow-up with your primary care provider for urine recheck OR if your symptoms persist, change or worsen significantly before you can contact your personal physician then please, without delay, go to the emergency department for further evaluation. Patient Language: Serbian Prescriptions: New fluconazole 150 mg tablet 150 mg PO Q72H Qty: 2 0RF nitrofurantoin monohyd/m-cryst [Macrobid] 100 mg capsule 100 mg PO Q12H 5 Days Qty: 10 0RF Rx Instructions: must administer with a meal/food phenazopyridine [Pyridium] 200 mg tablet 200 mg PO TID Qty: 6 0RF Follow-up/Referrals: Leslie,TRINO Shah [Primary Care Provider] Time of Disposition: 08:48
[2025-06-11 08:41] LABS: EDUAAPPEAR Clear; EDUABILI Negative (Negative); EDUABLOOD 2+ (Negative); EDUACOLOR1 Yellow; EDUAGLUCOSE Negative (Negative); EDUAKETONE Negative (Negative); EDUALEUKO Negative (Negative); EDUANITRATE Negative (Negative); EDUAPH 6.5; EDUAPROTEIN Negative (Negative); EDUASPGRAVITY 1.015; EDUAUROBILI 0.2
== END 2025-06-11 09:01 | disposition home or self-care (01) ==
PROVIDERS: Emergency Provider Nurse Practitioner Family; PCP Registered Nurse
DX: N30.90 Cystitis, unspecified without hematuria (principal)
CPT/HCPCS: 81003; 87086; 99213; G0463

== ENCOUNTER 2025-06-27 01:47 | Observation (INO) | payer BC, SELFPAY ==
--- OUTSIDE RECORDS SUMMARY | 2015-11-01 19:00 | XMS_ITS | Continuity of Care Document ---
Author Organization [facility] Address [address] [place] [address] [address] [place] [address] Phone Care Team Providers Care Contract Forester Name Role Phone Therapist, Test Unavailable Unavailable Procedures Procedure Date PT RE-EVALUATION THERAPEUTIC EXERCISES NEUROMUSCULAR RE-ED MANUAL THERAPY FUNC ACTIVITY HOT/COLD PACK ELECTRIC STIMULATION UNATT THERAPEUTIC EXERCISES NEUROMUSCULAR RE-ED MANUAL THERAPY FUNC ACTIVITY HOT/COLD PACK ELECTRIC STIMULATION UNATT THERAPEUTIC EXERCISES NEUROMUSCULAR RE-ED MANUAL THERAPY FUNC ACTIVITY HOT/COLD PACK ELECTRIC STIMULATION UNATT THERAPEUTIC EXERCISES NEUROMUSCULAR RE-ED MANUAL THERAPY FUNC ACTIVITY HOT/COLD PACK ELECTRIC STIMULATION UNATT THERAPEUTIC EXERCISES NEUROMUSCULAR RE-ED MANUAL THERAPY FUNC ACTIVITY HOT/COLD PACK ELECTRIC STIMULATION UNATT PT RE-EVALUATION THERAPEUTIC EXERCISES NEUROMUSCULAR RE-ED MANUAL THERAPY FUNC ACTIVITY HOT/COLD PACK ELECTRIC STIMULATION UNATT THERAPEUTIC EXERCISES NEUROMUSCULAR RE-ED MANUAL THERAPY FUNC ACTIVITY HOT/COLD PACK ELECTRIC STIMULATION UNATT THERAPEUTIC EXERCISES NEUROMUSCULAR RE-ED MANUAL THERAPY FUNC ACTIVITY HOT/COLD PACK ELECTRIC STIMULATION UNATT THERAPEUTIC EXERCISES NEUROMUSCULAR RE-ED MANUAL THERAPY FUNC ACTIVITY HOT/COLD PACK ELECTRIC STIMULATION UNATT PT RE-EVALUATION THERAPEUTIC EXERCISES NEUROMUSCULAR RE-ED FUNC ACTIVITY HOT/COLD PACK ELECTRIC STIMULATION UNATT THERAPEUTIC EXERCISES NEUROMUSCULAR RE-ED FUNC ACTIVITY HOT/COLD PACK ELECTRIC STIMULATION UNATT THERAPEUTIC EXERCISES NEUROMUSCULAR RE-ED MANUAL THERAPY FUNC ACTIVITY HOT/COLD PACK ELECTRIC STIMULATION UNATT THERAPEUTIC EXERCISES FUNC ACTIVITY NEUROMUSCULAR RE-ED MANUAL THERAPY HOT/COLD PACK ELECTRIC STIMULATION UNATT THERAPEUTIC EXERCISES FUNC ACTIVITY HOT/COLD PACK ELECTRIC STIMULATION UNATT PT EVALUATION THERAPEUTIC EXERCISES HOT/COLD PACK ELECTRIC STIMULATION UNATT Electrodes Advance Directives Directive Yes / No Effective Date File Name No Information Encounters Encounter Description Practice Location Reason(s) For Visit Diagnoses Date Provider Providers Copied on Encounter [facility] [address], [place], [place], [id number], [place] tel:[phone] Stephan No Information 6 Therapist Test. [address], [address], [place], [address], [place]. tel:[phone] Referring Provider: Test Therapist, [address] [place] [address], [facility]. tel:[phone], [id number], tel:[phone] Stephan No Information J Carlos-0 5-201 5 Valdivia April. [address] [place] [address], [address], [place], [facility], . tel:[phone] Referring Provider: Ed Dupree, [address] [facility] [address], [place], [address]. tel:[phone], [id number], tel:[phone] Stephan No Information J Carlos-0 2-201 5 Valdivia April. [address] [place] [address], [facility] [address], [place], [facility], . tel:[phone] Referring Provider: Ed Dupree, [address] [facility] [address], [place], [address]. tel:[phone], [id number], tel:[phone] Stephan No Information Dec-2 9-201 4 Valdivia April. [address] [place] [address], [address], [place], [facility], . tel:[phone] Referring Provider: Ed Dupree, [address] [facility] [address], [place], [address]. tel:[phone], [id number], tel:[phone] Stephan No Information Dec-2 2-201 4 Valdivia April. [address] [place] [address], [address], [place], [facility], . tel:[phone] Referring Provider: Ed Dupree, [address] [facility] [address], [place], [address]. tel:[phone], [place], [place], [id number], [place] tel:[phone] Stephan No Information Dec-1 9-201 4 Valdivia April. [address] [place] [address], [address], [place], [address], [place]. tel:[phone] Referring Provider: Ed Dupree, [address] [facility] [address], [place], [address]. tel:[phone], [place], [place], [address], [place] tel:[phone] Stephan No Information Dec-0 3-201 4 Valdivia April. [address] [place] [address], [address], [place], [address], [place]. tel:[phone], [place], [place], [id number], [place] tel:[phone] Stephan No Information Dec-0 1-201 4 Valdivia April. [address] [place] [address], [address], [place], [address], [place]. tel:[phone], [place], [place], [id number], [place] tel:[phone] Stephan No Information Nov-2 5-201 4 Meir Ward. [address] [place] [address], [address], [place], [address], [place]. tel:[phone], [place], [place], [address], [place] tel:[phone] Stephan No Information Nov-2 4-201 4 Meir Ward. [address] [place] [address], [address], [place], [address], [place]. tel:[phone], [place], [place], [address], [place] tel:[phone] Stephan No Information Nov-1 2-201 4 Valdivia April. [address] [place] [address], [address], [place], [place], [facility], . tel:[phone], [place], [place], [id number], tel:[phone] Stephan No Information Nov-1 1-201 4 Valdivia April. [address] [place] [address], [facility] [address], [place], [place], [facility], . tel:[phone], [place], [place], [id number], tel:[phone] Stephan No Information Nov-1 0-201 4 Valdivia April. [address] [place] [address], [address], [place], [place], [facility], . tel:[phone], [id number], tel:[phone] Stephan No Information Nov-0 7-201 4 Valdivia April. [address] [place] [address], [address], [place], [facility], . tel:[phone], [id number], tel:[phone] Stephan No Information Nov-0 5-201 4 Valdivia April. [address] [place] [address], [facility] [address], [place], [facility], . tel:[phone], [place], [id number], tel:[phone] Stephan CervicalgiaLumbago Nov-0 3-201 4 Valdivia April. [address] [place] [address], [address], [place], [place], [facility], . tel:[phone] Family History Family Member Type Diagnosis Age At Onset No Information Payers Payer name Insurance type Covered constitution party ID Authoriza tion(s) No Information Social History Type Description Quantity Date Captured Comments Sex Female Smoking Status No Information Chief Complaint And Reason For Visit No Information Reason For Referral Reason For Referral No Information History Of Present Illness Encounter Date Complaint History Of Prese nt Illness No Information Functional Status Date Functional Assessmen t No Information Instructions Date Instruction Additional Infor mation No Information Assessments Type Assessment Date No Information Patient Care Teams Name Effective Dates (start - stop) Status Members No Information
--- OUTSIDE RECORDS SUMMARY | 2015-11-01 19:00 | XMS_ITS | Continuity of Care Document ---
Author Organization [facility] Address [address] [place] [address] [address] [place] [address] Phone Care Team Providers Care Pharmacovigilance Scientist Name Role Phone Therapist, Test Unavailable Unavailable [...] Date Provider Providers Copied on Encounter [facility] [facility] 300, [place], [place], [id number], [place] tel:[phone] [facility] No Information 6 Therapist Test. [address], [address], [place], [address], [place]. tel:[phone] Referring Provider: Test Therapist, [address] [place] [address], [facility]. tel:[phone], [id number], tel:[phone] Omega No Information J Carlos-0 5-201 5 Valdivia April. [address] [place] [address], [address], [place], [facility], . tel:[phone] Referring Provider: Ed Dupree, [address] [facility] [address], [place], [address]. tel:[phone], [id number], tel:[phone] Omega No Information J Carlos-0 2-201 5 Valdivia April. [address] [place] [address], [facility] [address], [place], [facility], . tel:[phone] Referring Provider: Ed Dupree, [address] [facility] [address], [place], [address]. tel:[phone], [id number], tel:[phone] Omega No Information Dec-2 9-201 4 Valdivia April. [address] [place] [address], [address], [place], [facility], . tel:[phone] Referring Provider: Ed Dupree, [address] [facility] [address], [place], [address]. tel:[phone], [id number], tel:[phone] Omega No Information Dec-2 2-201 4 Valdivia April. [address] [place] [address], [address], [place], [facility], . tel:[phone] Referring Provider: Ed Dupree, [address] [facility] [address], [place], [address]. tel:[phone], [place], [place], [address], [place] tel:[phone] Omega No Information Dec-1 9-201 4 Valdivia April. [address] [place] [address], [address], [place], [address], [place]. tel:[phone] Referring Provider: Ed Dupree, [address] [facility] [address], [place], [address]. tel:[phone], [place], [place], [id number], [place] tel:[phone] Omega No Information Dec-0 3-201 4 Valdivia April. [address] [place] [address], [address], [place], [address], [place]. tel:[phone], [place], [place], [address], [place] tel:[phone] Omega No Information Dec-0 1-201 4 Valdivia April. [address] [place] [address], [address], [place], [address], [place]. tel:[phone], [place], [place], [address], [place] tel:[phone] Omega No Information Nov-2 5-201 4 Meir Ward. [address] [place] [address], [address], [place], [address], [place]. tel:[phone], [place], [place], [id number], [place] tel:[phone] Omega No Information Nov-2 4-201 4 Meir Ward. [address] [place] [address], [address], [place], [address], [place]. tel:[phone], [place], [place], [address], [place] tel:[phone] Omega No Information Nov-1 2-201 4 Valdivia April. [address] [place] [address], [address], [place], [facility], . tel:[phone], [place], [place], [id number], tel:[phone] Omega No Information Nov-1 1-201 4 Valdivia April. [address] [place] [address], [facility] 105, [place], [facility], . tel:[phone] [address], [place], [place], [address], tel:[phone] Omega No Information Nov-1 0-201 4 Valdivia April. [address] [place] [address], [address], [place], [facility], . tel:[phone], [id number], tel:[phone] Omega No Information Nov-0 7-201 4 Valdivia April. [address] [place] [address], [address], [place], [facility], . tel:[phone], [id number], tel:[phone] Omega No Information Nov-0 5-201 4 Valdivia April. [address] [place] [address], [facility] [address], [place], [facility], . tel:[phone], [place], [id number], tel:[phone] [facility] CervicalgiaLumbago Nov-0 3-201 4 Valdivia April. [address] [place] [address], [address], [place], [place], [facility], . tel:[phone] Family History Family Member Type Diagnosis Age At Onset No Information Payers Payer name Insurance type Covered green party ID Authoriza tion(s) No Information Social [...]
--- OUTSIDE RECORDS SUMMARY | 2021-09-11 08:15 | XMS_ITS | Continuity of Care Document ---
Author Organization [facility] Address [address] [place] [address] Phone Care Team Providers Care Vasc Tech Name Role Phone Sukhjinder Nuñez MD Unavailable Unavailable Procedures Procedure Date INJ SPINE CERV/THOR W/ IMAGING GUIDANCE SURGICAL TRAY LOW OSMOLAR CONTRAST (300 TO 399 MG IODI NE) DEPO-MEDROL 80MG MRI OF NECK, SPINE W/O CONTRAST MRI, LUMBAR SPINE W/O CONTRAST Advance Directives Directive Yes / No Effective Date File Name No Information Encounters Encounter Description Practice Location Reason(s) For Visit Diagnoses Date Provider Providers Copied on Encounter [facility], [address], [place], [place], [address], tel:[phone] [facility] No Information Savannah Slaughter. [address] [place], [place], [id number], [place]. tel:[phone] Referring Provider: [address], [place], [address]. tel:[phone] [facility], [address], [place], [place], [address], [place] tel:[phone] [facility] No Information Saavnnah Slaughter. [address], [place], [place], [address], [place]. tel:[phone] Referring Provider: [address], [place], [address]. tel:[phone] Family History Family Member Type Diagnosis Age At Onset No Information Payers Payer name Insurance type Covered green party ID Authoriza tishell(s) CLAIMS ONE [id number] Social History Type Description Quantity Date Captured [...]
--- OUTSIDE RECORDS SUMMARY | 2021-09-11 08:15 | XMS_ITS | Continuity of Care Document ---
Author Organization [facility] Address [address] [place] [address] Phone Care Team Providers Care Research Archaeologist Name Role Phone Sukhjinder Nuñez MD Unavailable [...] Diagnoses Date Provider Providers Copied on Encounter [employer], [address], [place], [place], [id number], tel:[phone] [facility] No Information Savannah Slaughter. [address], [place], [id number], [place]. tel:[phone] Referring Provider: [address], [place], [address]. tel:[phone] [employer], [address], [place], [place], [id number], [place] tel:[phone] [facility] No Information Savannah Slaughter. [address], [place], [place], [id number], [place]. tel:[phone] Referring Provider: [address], [place], [address]. tel:[phone] Family History Family Member Type Diagnosis Age At Onset No Information Payers Payer name Insurance type Covered democrat ID Authoriza tishell(s) CLAIMS ONE [id number] Social History Type Description Quantity Date Captured [...]
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
--- OUTSIDE RECORDS SUMMARY | 2024-10-13 05:12 | XMS_ITS ---
Author Organization [facility] Address [address] [facility] [address] [place] [address] Care Team Providers Care Hospital Recruiter Name Role Phone Leslie Alyssa Primary Care Provider Carson Jules Unavailable [phone] REASON FOR VISIT rx MEDICATIONS Medication SIG (Take, Route, Fr equency, Duration) Notes Start Date End Date Status traMADol HCl 50 MG 1 tablet as needed O rally every 6-8 hours 10/13/2024 Active Encounters Encounter Location Date Provider Diagnosis [facility] [address] [facility] [address] [place] [address] 10/13/2024 Carson Baldwin PLAN OF TREATMENT Medication Medication Name Sig Start Date Stop Date Notes traMADol HCl 50 MG 1 tablet as needed O rally every 6-8 hours 10/13/2024
--- OUTSIDE RECORDS SUMMARY | 2024-11-03 09:39 | XMS_ITS ---
Author Organization [facility] Address [address] [facility] [address] [place] [address] Care Team Providers Care Transfer Coordinator Name Role Phone Leslie Alyssa Primary Care Provider Carson Jules Unavailable [phone] RESULTS Component Value Reference Range Notes Thoracic and Lumbar MRI with out contrast Reviewed date:11/03/2024 03:11:08 PM Interpretation: Performing Lab: Notes/Report: REASON FOR VISIT Medication PROBLEMS Problem Type ICD Code Onset Dates Problem Status W/U Status Risk SNOMED Code Notes Problem Lumbar radiculopathy (M54.16) Active confirmed Lumbar radiculopathy (775364630) Problem Thoracic radiculopathy (M54.14) Active confirmed Thoracic radiculopathy (98061644) Encounters Encounter Location Date Provider Diagnosis [facility], [place] [address] [facility] [address] [place] [address] 11/03/2024 Carson Baldwin Lumbar radiculopathy M54.16 and Thoracic radiculopathy M54.14 ASSESSMENTS Encounter Date Diagnosis Assessment Notes Treatment Notes Treatment Clinical Notes 11/03/2024 Lumbar radiculopathy (ICD-10 - M54.16) 11/03/2024 Thoracic radiculopathy (ICD-10 - M54.14) PLAN OF TREATMENT No Information
--- OUTSIDE RECORDS SUMMARY | 2024-11-08 05:36 | XMS_ITS ---
Author Organization [facility] Address [address] [place] [address] Care Team Providers Care Saw Straightener Name Role Phone Leslie Alyssa Primary Care Provider Carson Jules Unavailable [phone] REASON FOR REFERRAL Reason Eval and Treat Diagnosis 1 Shoulder pain (M25.5 19) Referral Organization [facility] Referring Provider First Name Carson Referring Provider Last Name Nicolasa Referring Provider Speciality Orthopedic Surgery Referred Provider Storm Avendano Referred Provider Specialty Orthopedic S urgery Referral Priority Routine REASON FOR VISIT referral to Dr. Avendano Encounters Encounter Location Date Provider Diagnosis [facility] [address] [facility] [address] [place] [address] 11/08/2024 Carson Baldwin PLAN OF TREATMENT Referrals Referral Date Details Eval and Treat, Julio Avendano Consultation Request Notes Referral Date Referring Provider Referred Provider Not giuliana 11/08/2024 Carson Baldwin Matthew Eval and Tr eat
--- OUTSIDE RECORDS SUMMARY | 2024-11-08 06:33 | XMS_ITS ---
Author Organization [facility] Address [address] [place] [address] Care Team Providers Care Manager Compensation Name Role Phone LeslieAlyssa Primary Care Provider Carson Jules Unavailable [phone] REASON FOR REFERRAL Reason Eval and Treat [...] Notes Problem Cervicalgia (M54.2) Active confirmed Cervicalgia ([id number]) Encounters Encounter Location Date Provider Diagnosis [facility] [address] [place] [address] 11/08/2024 Carson Baldwin PLAN OF TREATMENT Referrals Referral Date Details Eval and Treat, Apollo Coy Consultation Request Notes Referral Date Referring Provider Referred Provider Not giuliana 11/08/2024 Carson Baldwin Patricia Eval and T reat
[2025-06-27] VITALS (15 sets, daily range): BP systolic 130–173; BP diastolic 70–96; PULSE 71–95; RESP 14–20; TEMP 36.3–36.8; O2SAT 99–100; BMI 32.3
--- NOTE | ~2025-06-27 | CT_ITS ---
EXAMINATION: CTA brain carotid DATE: 06/27/2025 02:09 INDICATION: Intermittent tingling of the right arm and leg. TECHNIQUE: Computed tomographic angiography (CTA) of the head was performed with 100 mL Omnipaque-350 intravenous contrast. CTA of the neck was performed with intravenous contrast. Automated exposure control and iterative reconstruction technique were employed. The dose-length product was 1079.59 mGy-cm. Maximum intensity projection and volume rendered 3D-reconstructions were created by the technologist on a separate workstation. COMPARISON: Head CT 06/27/2025 FINDINGS: HEAD CTA: There is no intracranial hemorrhage, acute infarction, or abnormal intracranial mass lesion. The ventricles are normal in size. There is an old blowout fracture of medial wall of left orbit. There is mild mucosal thickening in the paranasal sinuses. The mastoid air cells are normal. The vertebral arteries are codominant. There is no significant stenosis of basilar artery or the posterior cerebral arteries. There is no significant stenosis of the intracranial internal carotid arteries or anterior or middle cerebral arteries. Anterior communicating artery is normal. The posterior communicating arteries are normal. There is no aneurysm. NECK CTA: There are no pathologically enlarged lymph nodes. There is no significant stenosis of the vertebral arteries. There is mild plaque in the proximal internal carotid arteries. There is 0% stenosis of the proximal right internal carotid artery relative to normal distal artery lumen diameter (NASCET criteria). There is 0% stenosis of the proximal left internal carotid artery relative to normal distal artery lumen diameter. There is severe cervical spondylosis. IMPRESSION: 1. Normal brain. 2. No aneurysm or significant intracranial canal stenosis. 3. 0% stenosis of the proximal internal carotid arteries relative to normal distal artery lumen diameters (NASCET criteria). Reviewed, dictated and finalized at location E. IMPRESSION: 1. Normal brain. 2. No aneurysm or significant intracranial canal stenosis. 3. 0% stenosis of the proximal internal carotid arteries relative to normal dis juan artery lumen diameters (NASCET criteria).
--- NOTE | ~2025-06-27 | CT_ITS ---
EXAMINATION: CT brain wo con DATE: 06/27/2025 02:09 INDICATION: Intermittent tingling of the right arm and leg. TECHNIQUE: Computed tomography (CT) of the head was performed without intravenous contrast. The mA was adjusted according to patient size. Iterative reconstruction technique was employed. The dose-length product was 681.00 mGy-cm. COMPARISON: None FINDINGS: There is no intracranial hemorrhage, acute infarction, or abnormal intracranial mass lesion. The ventricles are normal in size. There is an old blowout fracture of medial wall of left orbit. There is mild mucosal thickening in the paranasal sinuses. The mastoid air cells are normal. IMPRESSION: 1. Normal brain. Reviewed, dictated and finalized at location E. IMPRESSION: 1. Normal brain.
--- NOTE | ~2025-06-27 | XR_ITS ---
Examination: XR chest 1V portable Clinical History: intermittent tingling R arm/leg Comparison: 07/01/2022 Technique: Portable AP Findings: Heart size normal. Lungs clear. No acute bony abnormality. IMPRESSION: 1. No acute cardiopulmonary findings given portable technique. Reviewed, dictated and finalized at location R.
--- NOTE | ~2025-06-27 | MR_ITS ---
EXAMINATION: MR brain/brain stem wo/w con DATE: 06/28/2025 10:59 INDICATION: Right-sided paresthesias. TECHNIQUE: Magnetic resonance imaging (MRI) of the brain and brainstem was performed without and with 16 mL MultiHance intravenous contrast. COMPARISON: Head CT 06/27/2025 FINDINGS: There is an acute infarct in the left basal ganglia. There is no intracranial hemorrhage or abnormal mass lesion. There are scattered areas of nonspecific increased T2-weighted signal intensity in the cerebral white matter, which is within normal limits for the patient's age. The ventricles are normal in size. There is mild mucosal thickening in the paranasal sinuses. There is an old blowout fracture of medial wall of left orbit. The mastoid air cells are normal. IMPRESSION: 1. Acute infarct in the left basal ganglia. Reviewed, dictated and finalized at location E.
--- OUTSIDE RECORDS SUMMARY | 2025-06-27 01:49 | XMS_ITS | Clinical Summary ---
Author Organization [facility] Address [address] [place] [phone] Phone Care Team Providers Care Rfid Engineer Name Role Phone Unavailable Primary Care Provider Unavailabl e Allergies No known active allergies Medications ferrous sulfate 325 mg (65 mg iron) tablet Take 325 mg by mouth 2 times daily. Active cyanocobalamin (VITAMIN B-12) 1,000 mcg/mL Solution Inject 1,000 mcg by intramuscular injection. Last dose 01/08. Sundays 4 Active ondansetron (ZOFRAN) 8 mg Tablet Take 8 mg by mouth every 8 hours as needed. Takes with wegovy 4 Active semaglutide, weight loss, (Wegovy) 1.7 mg/0.75 mL Pen Injector Inject 2.4 mg by subcutaneous injection every 7 days. Sundays 4 Active norethindrone acetate (Gallifrey) 5 mg Tablet Take 2 Tablets by mouth daily. Active cholecalcifero l, vitamin D3, 5,000 unit Take 5,000 Units by mouth every 7 days. Sundays Active Syringe with Needle, Disp, (BD Luer-Landy Syringe) 3 mL 25 gauge x 1 Syringe TO USE B12 IN THE MUSCLE EVERY 3 WEEKS 4 Active Encounters Date Type Department Care Team Description 06/20/2025 External Device Data [facility] ABSTRACTION Provider, Abstract 05/09/2025 External Device Data [facility]CTION Provider, Abstract 04/19/2025 External Device Data [facility]STRACTION Provider, Abstract 04/19/2025 External Device Data [facility] ABSTRACTION Provider, Abstract from Last 3 Months Social History Tobacco Use Types Packs/Day Years Used Date Smoking Tobacco: Never Smokeless Tobacco: Never Alcohol Use Standard Drinks/Week Comments Not Currently 0 (1 standard drink = 0.6 oz pur e alcohol) Feeling Safe Answer Date Recorded Are you in a relationship wi th someone who hurts you emotionally and/or physically? No 02/06/2025 Comments No Sex and Gender Information Value Date Recorded Sex Assigned at Not on file Legal Sex Female 10:39 AM CDT Gender Identity Not on file Sexual Orientation Not on file Last Filed Vital Signs Vital Sign Reading Time Taken Comments Blood Pressure 144/82 02/06/2025 12:43 PM CDT Pulse 84 02/06/2025 12:43 PM CDT Temperature - - Respiratory Rate - - Oxygen Saturation 99% 02/06/2025 12:43 PM CDT Inhaled Oxygen Concentration - - Weight 79.9 kg (176 lb 3.2 oz) 02/06/2025 12:43 PM CDT Height 157.5 cm (5' 2) 02/06/2025 12:43 PM CDT Body Mass Index 32.23 02/06/2025 12:43 PM CDT Plan of Treatment Health Maintenance Due Date Last Done Comments Pre-Diabetes and Diabetes Screening 1972 HEPATITIS B VACCINES (1 of 3 - 19+ 3-dose series) 1991 HPV/Cotest (21-29) 1993 CERVICAL CANCER SCREENING 2002 HPV/Cotest (30-65) 2002 PAP SMEAR 2002 DTAP/TDAP/TD VACCINES (1 - Tdap) 12/02/2012 12/01/19 13 BREAST CANCER SCREENING 10/16/2015 10/16/2014, 02/17 COLORECTAL SCREENING 2017 Colorectal Cancer Screening 2017 FIT-DNA Q 3 years 2017 FIT/FOBT Q 1 year 2017 Flex Sig/CT Colonography Q 5 years 2017 ZOSTER VACCINE (1 of 2) 2022 INFLUENZA VACCINE (#1) 2025 COVID-19 Vaccine (3 - 2024- season) 2025, 06/05/2021 Insurance [facility]
--- OUTSIDE RECORDS SUMMARY | 2025-06-27 01:49 | XMS_ITS | Clinical Summary ---
Author Organization [facility] Address [address] [place] [id number] Care Team Providers Care Insurance Account Specialist Name Role Phone Alyssa Nelson MOODY Primary Care Provider [phone] Allergies No known active allergies Medications cyanocobalamin (B-12) 1000 MCG/ML injection INJECT 1ML INTO THE MUSCLE EVERY 3 WEEKS 4 Active norethindrone (AYGESTIN) 5 MG tablet TAKE 1 TABLET BY MOUTH TWICE DAILY . CAN CHANGE TO ONCE DAILY WHEN BLEEDING BECOMES LIGHT 4 Active ondansetron (ZOFRAN) 8 MG tablet 4 Active SLOW FE 45 MG tablet Take 1 tablet (140 mg total) by mouth 2 (two) times daily. 5 Active vitamin D2, ergocalciferol, (DRISDOL) 1.25 mg capsule Take 1 capsule (1.25 mg total) by mouth once a week. 5 Active B-D 3CC LUER-DAVE SYR 25GX1 25G X 1 3 ML MiscIndications :Vitamin B12 deficiency Use as directed once weekly 50 each 5 Active hydrOXYzine (ATARAX) 25 MG tabletIndicatio ns:Anxiety take 1 tablet by mouth daily as needed for anxiety 30 tablet 1 5 Active escitalopram (LEXAPRO) 20 MG tabletIndicatio ns:Anxiety Take 1 tablet (20 mg total) by mouth daily. 30 tablet 2 5 Active tirzepatide (ZEPBOUND) 7.5 MG/0.5ML injectionIndica tions:Weight Loss Inject 7.5 mg into the skin once a week. Indications: Weight Loss 2 mL 2 5 Active escitalopram (LEXAPRO) 10 MG tabletIndicatio ns:Anxiety Take 1 tablet (10 mg total) by mouth daily. 90 tablet 1 5 05/30/20 Discontinu ed(Dose adjustment ) hydrOXYzine (ATARAX) 25 MG tabletIndicatio ns:Anxiety take 1 tablet by mouth daily as needed for anxiety 30 tablet 5 05/30/20 Discontinu ed(Reorder ) tirzepatide (ZEPBOUND) 5 MG/0.5ML injectionIndica tions:Weight Loss Inject 5 mg into the skin once a week. Indications: Weight Loss 2 mL 1 5 05/30/20 Discontinu ed(Reorder ) tirzepatide (ZEPBOUND) 7.5 MG/0.5ML injectionIndica tions:Weight Loss Inject 7.5 mg into the skin once a week. Indications: Weight Loss 2 mL 1 5 05/30/20 Discontinu ed(Dose adjustment ) tirzepatide (ZEPBOUND) 5 MG/0.5ML injectionIndica tions:Weight Loss Inject 5 mg into the skin once a week. Indications: Weight Loss 2 mL 1 5 06/22/20 Discontinu ed(Dose adjustment ) Active Problems Problem Noted Date Diagnosed Date Mixed hyperlipidemia 07/16/2023 Anxiety 08/22/2022 Encounters Date Type Department Care Team Description 06/20/2025 Telephone [facility] Family & Internal Medicine [address] [phone] Alyssa Nelson APNP Information; Medication Request 06/11/2025 Scan MG [facility] INFO SRVCS Scanned, [facility] (SCAN) 05/30/2025 1:20 PM CDT Telemedicine [facility] Family & Internal [address] [phone] Alyssa Nelson APNP Anxiety (Pt c/o increased anxiety, heart palpitations with shortness of breath. Pt would like to pursue FMLA. She would also like to discuss increasing her Lexapro dose. She has run out of her hydroxyzine, so she hasn't been sleeping well. She would like this refilled today.); Weight Problem (Pt would like to return to 5 mg dose of Zepbound, and she is not wanting to lose more weight, but rather maintain.) 05/30/2025 Travel 04/13/2025 8:40 AM CDT Telemedicine [address] [phone] Alyssa Nelson APNP Weight Problem (Pt started on Zepbound 2.5 mg 3 weeks ago. She would like to discuss if dose increase is indicated, and to ask if PCP will take over managing this medication.); Prediabetes (Pt is concerned about her elevated A1c, d/t her family hx of T2DM. External lab results obtained from pt's [facility] account and added to lab results in chart. Pt's last A1c was 6.1 on 01/19/2025.) 04/13/2025 8:20 AM CDT Allied Health/Nurse Visit [address] [phone] Alyssa Nelson APNP Allied Health Visit 04/13/2025 Travel 04/12/2025 Scan [facility] SRVCS Scanned, [facility] 04/12/[address] [address] Alyssa Nelson APNP Information 04/06/2025 9:20 AM CDT Telemedicine [address] [address] Alyssa Nelson APNP Anxiety (Pt is set to return to work on May 10. She states she feels ready to return to work.); Lab Order (Pt would like orders for any labs she is due for. She plans to have drawn in July at [facility].) 04/06/2025 Travel 04/03/[address] [address] Alyssa Nelson APNP Information from Last 3 Months Immunizations Immunization Administration Dates Next Due PFIZER COVID-19 (ORIGINAL FO RMULATION, PURPLE CAP) mRNA, LNP-S, PF, 30 MCG/0.3 ML DOSE 07/04/2021,06/05/2021 Td (Generic) 12/01/2012 Family History Medical History Relation Comments No Known Problems Brother 1 No Known Problems Brother 2 No Known Problems Brother 3 Diabetes Mother Hypertension Mother No Known Problems Sister No Known Problems Son 1 No Known Problems Son 2 Relation Status Comments Brother 1 Alive Brother 2 Alive Brother 3 Alive Father Maternal Grandfather Maternal Grandmother Mother Alive Paternal Grandfather Paternal Grandmother Sister Alive Son 1 Alive Son 2 Alive Social History Tobacco Use Types Packs/Day Years Used Date Smoking Tobacco: Never Smokeless Tobacco: Never Tobacco Cessation:Counseling Given: No Alcohol Use Standard Drinks/Week Comments Yes 0 (1 standard drink = 0.6 oz pur e alcohol) socially PHQ-2 Answer Date Recorded Patient Health Questionnaire-2 Score 0 04/06/2025 Comments No Sex and Gender Information Value Date Recorded Sex Assigned at Female 02/14/2025 8:59 AM CDT Legal Sex Female 8:15 PM CDT Gender Identity Not on file Sexual Orientation Not on file Last Filed Vital Signs Vital Sign Reading Time Taken Comments Blood Pressure 128/76 04/13/2025 7:52 AM CDT Pulse 76 12/31/2023 10:11 AM CDT Temperature 36.3 C (97.4 F) 12/31/2023 10:11 AM CDT Respiratory Rate 16 12/31/2023 10:11 AM CDT Oxygen Saturation 96% 12/31/2023 10:11 AM CDT Inhaled Oxygen Concentration - - Weight 77.8 kg (171 lb 8 oz) 04/13/2025 7:52 AM CDT Height 154.9 cm (5' 1) 04/13/2025 7:52 AM CDT Body Mass Index 32.4 04/13/2025 7:52 AM CDT Plan of Treatment Health Maintenance Due Date Last Done Comments Cervical Cancer Screening Pa p Smear (Age 30 to 64) Every 3 Years 1972 Colorectal Cancer Screening Colonoscopy (10 Years) 1972 Annual Physical 1975 Hepatitis B Vaccines (1 of 3 - 19+ 3-dose series) 1991 Cervical Cancer Screening Pa p with HPV Testing (Age 30 to 64) Every 5 Years 2002 Cervical Cancer Screening wi th HPV 2002 DTaP, Tdap and Td Vaccines ( 1 - Tdap) 12/02/2012 12/01/2012 Mammogram Screening 10/16/2016 10/16/2014, 02/17/2014 Pneumococcal Vaccine: 50+ Years (1 of 1 - PCV) 2022 Zoster Vaccines (1 of 2) 2022 COVID-19 Vaccine (3 - 2024-2 6 season) 2025 07/04/2021, 06/05/2021 Hepatitis C Completed 07/16/2023 PHQ-2 (Physician [facility]) Completed 04/06/2025 Meningococcal B Vaccine Aged Out No l onger eligible based on patient's age to complete this topic Meningococcal Vaccine Aged Out No rhonda alonso eligible based on patient's age to complete this topic RSV Immunizations Under 20 Months Aged Out No longer eligible b ased on patient's age to complete this topic Procedures Procedure Name Priority Date/Time Associated Diagnosis Comments OUTSIDE LAB (SCAN ORDER) 06/11/2025 OUTSIDE LAB (SCAN ORDER) 06/11/2025 HEPATITIS C ANTIBODY W/RFX TO HCV RNA Routine 07/16/2023 12:24 PM CDT from Last 3 Months or Most Recently Relevant to Health Maintenance Results * OUTSIDE LAB (SCAN ORDER) (06/11/2025) Only the most recent of2 resultswithin the time period is included. 06/11/2025 [facility] Scanned SCANNING Final Resu lt * HEPATITIS C ANTIBODY W/RFX TO HCV RNA (07/16/2023 12:24 PM CDT) HEPATITIS C AB NON-REACT [facility]O NON-REACT [facility]O [facility] Comment: HCV antibody was non-reactive. There is no laboratory evidence of HCV infection. In most cases, no further action is required. However, if recent HCV exposure is suspected, a test for HCV RNA (test code 71223) is suggested. For additional information please refer to http://education.IceWEB/faq/DZH26i2 (This link is being provided for informational/ educational purposes only.) 07/16/2023 12:2 4 PM CDT 07/16/2023 12:27 PM CDT Narrative [facility] - 07/20/2023 3:09 PM CDT FASTING:YES FASTING: YES Resulting Agency Comment Performing Organization Information: Site ID: [id number] Name: [facility] Address: [address] [place] [address] Director: Ambrocio Quiles PhD us A[facility]a [facility] Final Resul t [facility] [address] [facility] [place] [address], from Last 3 Months or Most Recently Relevant to Health Maintenance Insurance [facility] Care Teams Insurance Account Specialist Relationship Specialty Start Date End Date Alyssa Nelson APNP [address] [place] [address] PCP - General NURSE PRACTITIONER 07/09/22
--- OUTSIDE RECORDS SUMMARY | 2025-06-27 01:49 | XMS_ITS | Patient Health Record ---
Author Organization [facility] Address [address] [place], [place] [id number] Care Team Providers Care Security Systems Engineer Name Role Phone JonoSHAY petty Unavailable [phone] Reason For Referral No Information Medications Medication SIG (Take, Route, Frequency, Duration) Notes Start Date End Date Status Medrol Dosepak ORAL Medrol DosepakOr iginal MedicationMedrol Dosepak *Reorder from [facility] for eRx and Interaction Alerts* 5 Active betamethasone 0.5 MG/ML / clotrimazole 10 MG/ML Topical Cream [Lotrisone] CUTANEOUS betamethasone 0.5 MG/ML / clotrimazole 10 MG/ML Topical Cream [Lotrisone]Original Medicationbetamethasone 0.5 MG/ML / clotrimazole 10 MG/ML Topical Cream [Lotrisone] *Reorder from [facility] for eRx and Interacti 4 Active Plan Of Treatment No Information Insurance Providers Payer Name Payer Address Payer Phone Subscriber Number Group Number Insured Name Patient Relationship to Insured Coverage Start Date Coverage End Date [facility] [address] [place] [phone] [id number] MAX NAVA Self - patient is the insured [facility] ([facility]) ATTN CLAIMS [address] [place] [address] [id number] MAX NAVA Self - patient is the insured
--- OUTSIDE RECORDS SUMMARY | 2025-06-27 01:50 | XMS_ITS | Clinical Summary ---
Author Organization [facility] Address [address] [address] Care Team Providers Care Ssrs Report Developer Name Role Phone Unavailable Primary Care Provider Unavailabl e Source Comments [facility],non-owned Affiliates and Associated Physician Practices is amultiple site organization consisting of ambulatory clinics and hospital sitesin [place], [place], [place] and [place]. This disclosure is being madepursuant to the Care Everywhere program and may not contain all information available regarding this patient. Last updated 18.[facility] [employer] Social History Tobacco Use Types Packs/Day Years Used Date Smoking Tobacco: Never Assessed Comments Unknown Sex and Gender Information Value Date Recorded Sex Assigned at Not on file Legal Sex Female 1:05 PM CDT Gender Identity Not on file Sexual Orientation Not on file Last Filed Vital Signs Vital Sign Reading Time Taken Comments Blood Pressure 120/80 12/25/2015 11:14 AM CDT Pulse 70 10/11/2015 8:32 AM FINISHING TECHNICIAN Temperature 36.9 C (98.5 F) 10/11/2015 8:32 AM FINISHING TECHNICIAN Respiratory Rate 20 07/25/2014 10:44 AM CDT Oxygen Saturation 100% 07/25/2014 10:44 AM CDT Inhaled Oxygen Concentration - - Weight 73 kg (161 lb) 12/25/2015 11:14 AM CDT Height 157.5 cm (5' 2) 12/25/2015 11:14 AM CDT Body Mass Index 29.45 12/25/2015 11:14 AM CDT Plan of Treatment Health Maintenance Due Date Last Done Comments SAPNA (AGES 45-75) - COL ON CA SCREENING 1972 COLON MONITORING 1972 COLONOSCOPY - COLON CA SCREENING 1972 CT COLONOGRAPHY - COLON CA SCREENING 1972 Colorectal Cancer Screening 1972 FIT - COLON CA SCREENING 1972 FLEX SIG - COLON CA SCREENING 1972 LIPID TESTING 1972 MAMMOGRAM 1972 HIV SCREENING 1987 HEPATITIS C SCREENING 08/15/1990 DTAP/TDAP/TD VACCINES (1 - Tdap) 1991 HEPATITIS B VACCINE (1 of 3 - 19+ 3-dose series) 1991 PNEUMOCOCCAL VACCINE 50+ (1 of 1 - PCV) 2022 ZOSTER VACCINE (1 of 2) 2022 DEPRESSION SCREENING 10/05/2024 COVID-19 VACCINE (1 - 2023-2 5 season) 2025 INFLUENZA VACCINE (#1) 2025 HIB VACCINE Aged Out No longer eligi ble based on patient's age to complete this topic HPV VACCINE Aged Out No longer eligi ble based on patient's age to complete this topic MENINGOCOCCAL (Group B) VACC INE SHARED DECISION-MAKING Aged Out No longer eligibl e based on patient's age to complete this topic MENINGOCOCCAL GROUPS A/C/Y/W VACCINE Aged Out No longer eligible b ased on patient's age to complete this topic [place] [address]
--- OUTSIDE RECORDS SUMMARY | 2025-06-27 01:50 | XMS_ITS | Clinical Summary ---
Author Organization [facility] Address [address] [place] [address] Care Team Providers Care Farm Boss Name Role Phone No, Physician Primary Care Provider [phone] Allergies No known active allergies Medications cyanocobalamin (Vitamin B-12) 1,000 mcg/mL injection INJECT 1ML INTO THE MUSCLE EVERY 3 WEEKS Active escitalopram (LEXAPRO) 10 mg tablet 12/18/2023 Active hydrOXYzine (ATARAX) 25 mg tablet Take one tablet as daily needed for anxiety. 12/31/2023 Active BD Luer-Landy Syringe 3 mL 25 gauge x 1 syringe TO USE B12 IN THE MUSCLE EVERY 3 WEEKS 03/05/2024 Active UNABLE TO FIND B-D 3CC LUER-LANDY SYR 25GX1 25G X 1 3 ML MISC 10/04/2024 Active ergocalciferol (VITAMIN D) 50,000 unit capsule Take 1.25 mg by mouth once a week 03/24/2025 Active Zepbound 5 mg/0.5 mL pen injector Inject 0.5 mL (5 mg total) under the skin once a week 04/21/2025 Active norethindrone (AYGESTIN) 5 mg tablet Take 1 tablet (5 mg total) by mouth 2 (two) times a day Active Active Problems Problem Noted Date Diagnosed Date Bulky or enlarged uterus 02/25/2025 Cervicalgia 02/21/2025 Adenomyosis 04/04/2024 Iron deficiency anemia 04/04/2024 Abnormal uterine bleeding 03/16/2024 Mixed hyperlipidemia 07/16/2023 Anxiety 08/22/2022 Absence of breast, acquired, right 08/15/2020 Overview (08/15/2020): Added automatically from request for surgery [id number] Hx of breast cancer 08/25/2019 Overview (08/25/2019): Added automatically from request for surgery [id number] Deformity of breast after mastectomy 08/25/2019 Overview (08/25/2019): Added automatically from request for surgery [id number] Abnormal computed tomography scan 08/10/2015 Dysmenorrhea 08/10/2015 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 Umbilical mass 06/22/2015 Goiter 06/21/2015 Umbilical pain 03/07/2015 Obesity 03/15/2014 Stress incontinence in female 11/28/2013 Resolved Problems Problem Noted Date Diagnosed Date Resolved Date Intramural leiomyoma of uterus 02/25/2025 02/25/2025 Hx of breast reconstruction 12/05/2019 04/04/2024 Overview (12/05/2019): Added automatically from request for surgery [id number] Encounters Date Type Department Care Team Description 04/25/2025 1:15 PM CDT Office Visit [facility] Medicine Minimally Invasive Surgery [address] [place] [address] Health 7th Floor [address] [place] [address] Nuha Stuart MD Adenomyosis (Primary Dx); Abnormal uterine bleeding from Last 3 Months Immunizations Immunization Administration Dates Next Due Td, Not Adsorbed 12/01/2012 Surgical History Surgery Date Site/Laterality Comments [place] DELIVERY ONLY Section - (Added by TW Conv) MASTECTOMY 10/05/2014 - 10/04/2015 Right no reconstruction SECTION Medical History Medical History Date Comments Anemia Sarcoma of right breast (HCC) 2014 Family History Medical History Relation Name Comments No Known Problems Brother 1 No Known Problems Brother 2 No Known Problems Brother 3 No Known Problems Brother 4 Hypertension Maternal Grandmother Hyperte nsion - (Added by TW Conv) Diabetes Mother Diabetes type II Other Type 2 Diab etes Mellitus - (Added by TW Conv) No Known Problems Sister Anesthesia problems Neg Hx Relation Name Status Comments Brother 1 Alive Brother 2 Alive Brother 3 Alive Brother 4 Alive Father Maternal Grandmother Mother Alive Other Sister Alive Social History Tobacco Use Types Packs/Day Years Used Date Smoking Tobacco: Never Smokeless Tobacco: Never Alcohol Use Standard Drinks/Week Comments Never 0 (1 standard drink = 0.6 oz pur e alcohol) AUDIT-C Answer Date Recorded Q1: How often do you have a drink containing alcohol? Never 04/25/2025 Q2: How many drinks containi ng alcohol do you have on a typical day when you are drinking? Patient does not drink Q3: How often do you have si x or more drinks on one occasion? Never 04/25/2025 Exercise Vital Sign Answer Date Recorde d On average, how many days pe r week do you engage in moderate to strenuous exercise (like a brisk walk)? 3 days 08/06/2020 On average, how many minutes do you engage in exercise at this level? 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 Gender Identity Not on file Sexual Orientation Not on file Obstetrics History Para Term AB IAB SAB Ectopic Multiple Livin g Live Births 2 2 2 2 2 Date Outcome GA Total Labor Labor/2nd/3rd Weight Sex Type Anes PTL Sylvie A1 A5 Name Clin 1991 Term M CS-Un spec Living Complications:None 1992 Term M CS-Un spec Living Complications:None Last Filed Vital Signs Vital Sign Reading Time Taken Comments Blood Pressure 136/90 04/25/2025 1:06 PM CDT Pulse 67 03/31/2023 12:45 PM CDT Temperature 36.8 C (98.3 F) 05/06/2014 11:17 PM CDT Respiratory Rate 16 03/31/2023 12:45 PM CDT Oxygen Saturation 98% 03/31/2023 12:45 PM CDT Inhaled Oxygen Concentration - - Weight 77.1 kg (170 lb) 04/25/2025 1:06 PM CDT Height 157.5 cm (5' 2.01) 04/25/2025 1:06 PM CD T Body Mass Index 31.08 04/25/2025 1:06 PM CDT Plan of Treatment Health Maintenance Due Date Last Done Comments Breast Cancer Screening-Mammogram 1972 Colon Cancer Screening-Colonoscopy 1972 Depression Screening 1972 Hepatitis B Screening 1990 DTaP/Tdap/Td Vaccine (1 - Tdap) 12/02/2012 12/01/2012 Zoster Vaccine (1 of 2) 2022 Regular Well Visit/Exam 18-64 03/31/2024, 08/06/2020 Cervical Cancer Screening 03/16/20252023, 03/16/2024 Covid-19 Vaccine (3 - 2024-2 6 season) 2025 07/04/2021, 06/05/2021 Influenza Vaccine (#1) 2025 Hepatitis C Screening Completed 04/01/2023 , 04/18/2021 Pneumococcal vaccine <65 Aged Out No longer eligible based on patient's age to complete this topic Procedures Procedure Name Priority Date/Time Associated Diagnosis Comments HIGH RISK HPV DNA DETECTION WITH GENOTYPING Routine 03/16/2024 5:07 PM CDT Abnormal uterine bleeding HEPATITIS C ANTIBODY Routine 04/01/2023 7:48 AM CDT Routine screening for STI (sexually transmitted infection) from Last 3 Months or Most Recently Relevant to Health Maintenance Results * High Risk HPV DNA Detection with Genotyping (Molecular component) (03/16/2024 5:07 PM CDT) HPV HR 16 Not Detected Not Detected [facility] HPV HR 18 Not Detected Not Detected [facility] HPV HR Non 16/18 Not Detected Not Detected [facility] Comment: Interpretive Data Nucleic acid amplification for detection of high-risk Human Papilloma virus (HPV) is performed by the Imelda Crow 6800 HPV test. This assay specifically detects HPV-16 and HPV-18 genotypes. The following HPV genotypes are detected as high-risk HPV: HPV-31, 33, 35, ,39, 45, 51, 52, 56, 58, 59, 66, and 68. This assay has been approved by the [place] Food and Drug Administration for detection of HPV in cervical specimens collected by a physician using an endocervical brush/spatula or cervical broom and placed in the ThinPrep Pap Test PreservCyt collection containers. The performance characteristics of this test have been verified by the [facility] Molecular Infectious Disease laboratory. Correlate with separately reported cytology results, as applicable. Interpretive data last revised 23 Endocervical 03/16/2024 5:07 PM CDT 03/17/2024 3:20 PM CDT Narrative JASON FUNES - 03/18/2024 5:53 AM CDT Clinical history and diagnosis->abnormal uterine bleeding, no hx dysplasia Number of vials->1 Testing type->Screening Last menstrual period (date if known)->current us Zeenat Saavedra MD LAB BODY FLUID S AND STOOLS ORDERABLES Final Result Performing Organization Address City/[facility]/ZIP Co de Phone Number JASON [facility] [place] [address] [facility] * Hepatitis C antibody (04/01/2023 7:48 AM CDT) Hep C Ab NON-REACTI VE NON-REACT [facility] Comment: HCV antibody was non-reactive. There is no laboratory evidence of HCV infection. In most cases, no further action is required. However, if recent HCV exposure is suspected, a test for HCV RNA (test code 41038) is suggested. For additional information please refer to http://education.Space Monkey.CultureMap/faq/BCP28i8 (This link is being provided for informational/ educational purposes only.) Blood 04/01/2023 7:48 AM CDT 04/01/2023 7:49 AM CDT us Trish Crawford NP LAB MICROBIOLOGY - GENE RAL ORDERABLES Final Result [place] [id number] [id number] from Last 3 Months or Most Recently Relevant to Health Maintenance Insurance BLUE ACCESS [place] BLUE [facility] CHOICE OOS [employer] [place] BL[place] ACC CHOICE OOS BLUE ACC CHOICE OOS Member Subscriber Plan / Payer (Ef fective 2024-Present) Name:Denilsonmarjorieshell Rebecca L Relation to Subscriber:Spouse Name:Elva Loredo Date of :1970 (Home) Address: [address] [place] [address] [place] [address] Payer ID:[id number] (NAIC) Type:[employer] Address: [address] [place] Care Teams Farm Boss Relationship Specialty Start Date End Date No, Physician PCP - General 08/25/19
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
--- NOTE | 2025-06-27 01:53 | ECG_ITS ---
Test Date: 2025-06-27 02:27:02 Measurements Intervals [place] Rate: 79 P: 62 IN: 193 QRS: 10 QRSD: 78 T: 40 QT: 369 QTc: 423 Interpretive Statements SINUS RHYTHM POSSIBLE LEFT ATRIAL ENLARGEMENT [-0.1mV P WAVE IN V1/V2] BORDERLINE ECG No previous ECG available for comparison Electronically Signed On 06-27-2025 12:26:20 CDT by Chao Hunter M.D.
[2025-06-27 02:04] LABS: Hematocrit 38.8 % (37.0-47.0); Hemoglobin 12.4 g/dL (12.0-15.0); Immature Granulocyte Percent A 0.2 % (0-0.5); Lymphocytes Absolute Auto 1.31 K/mm3 (0.9-3.2); Mean Corpuscular HGB Conc 32.0 g/dl (32-36); Mean Corpuscular Hemoglobin 23.6 pg (26-34); Mean Corpuscular Volume 73.9 fl (80-100); Nucleated Red Blood Cells Absolute Auto 0.000 K/mm3 (0.0-0.012); Nucleated Red Blood Cells Perc 0.0 % (0.0-0.2); Platelet Count Result 385 k/mm3 (150-375); Red Blood Count 5.25 M/mm3 (4.2-5.4); White Blood Count 6.5 K/mm3 (4.5-10.0)
[2025-06-27 02:06] LABS: Estimated Glomerular Filt Rate > 60
[2025-06-27 02:15] LABS: INR 0.9; Prothrombin Time 12.6 Seconds (11.1-14.7)
[2025-06-27 02:21] LABS: Partial Thromboplastin Time 20.0 Seconds (22.3-36.8)
[2025-06-27 02:24] LABS: Hypochromasia 1+; Ovalocytes Occasional; Schistocytes None Seen
[2025-06-27 02:53] LABS: Alanine Aminotransferase 24 U/L (6-35); Albumin Level 3.6 g/dL (3.5-5.1); Alkaline Phosphatase 42 U/L (38-126); Anion Gap 7 mmol/L (4-12); Aspartate Amino Transferase 27 U/L (14-36); Bilirubin,Total 0.6 mg/dL (0.2-1.3); Blood Urea Nitrogen 9 mg/dL (7-17); Calcium 8.1 mg/dL (8.4-10.2); Carbon Dioxide 23 mmol/L (22-30); Chloride 106 mmol/L (98-107); Estimated CRCL calculation 66 ml/min; Estimated Glomerular Filt Rate > 60; Glucose 126 mg/dL (65-110); Potassium 3.2 mmol/L (3.4-5.0); Sodium 136 mmol/L (137-145); Total Protein 6.7 g/dL (6.3-8.2)
[2025-06-27 03:05] LABS: Troponin I < 0.012 ng/mL (0.000-0.034)
[2025-06-27] MEDS: CLOPIDOGREL BISULFATE 75 MG TABLET PO (03:09)
[2025-06-27] MEDS: ASPIRIN 81 MG ENTERIC TABLET PO (03:09)
[2025-06-27] MEDS: ATORVASTATIN 40 MG TABLET 80 MG PO (03:09)
--- NOTE | 2025-06-27 03:44 | ED.NEUROSD ---
HPI - Neuro Symptoms/Deficit General Chief Complaint: Neuro Symptoms/Deficit Stated Complaint: numbness to right side for 4 hours Time Seen by Provider: 06/27/25 01:54 History of Present Illness HPI Narrative: For last few weeks, patient has noticed some paresthesias a sensation of heaviness to her right arm, she that was just from painting, however for last 4 hours tonight, she has paresthesias again and also feels like her right arm and leg were heavier than usual, this comes and goes and currently she just has some paresthesias. No back pain or neck pain has never had stroke Related Data Allergies Allergy/AdvReac Type Severity Reaction Status Date / Time No Known Allergies Allergy Verified 06/11/25 08:25 Review of Systems Review of Systems: All systems reviewed & are unremarkable except as noted in HPI and below PMFSH Past Medical History Medical History Anemia Surgical History Surgical History No pertinent past surgical history Family History Family History Mother Family history non-contributory Social History Social History Smoking status: Never smoker Substance use: never Gender identity (if verbalized by the patient): Female Spiritual care concerns: No Exam Narrative: EXAMINATION OF ORGAN SYSTEMS/BODY AREAS: Constitutional: Vital signs per nursing GENERAL:[No acute distress, non-toxic appearing.] HEAD: Normal with no signs of head trauma. EYES: EOMI, conjunctiva normal ENT: Hearing grossly intact LUNGS: Nonlabored breathing. HEART: [Regular rate and rhythm] ABD: [Soft], [nontender to palpation] EXT: Normal range of motion SKIN: [No rashes or lesions.] NEURO: [Alert and oriented x 3. No drift upper or lower extremity.] Some diminished sensation RUE/RLE. No facial droop no ataxia. PSYCH: Normal affect Course Vital Signs Vital signs: Vital Signs Temperature 98.1 F 06/27/25 02:15 Pulse Rate 84 06/27/25 02:15 Respiratory Rate 16 06/27/25 02:15 Blood Pressure 173/96 H 06/27/25 02:15 Pulse Oximetry 100 06/27/25 02:15 Oxygen Delivery Room Air 06/27/25 02:15 Temperature 98.1 F 06/27/25 02:15 Pulse Rate 83 06/27/25 03:12 Respiratory Rate 14 06/27/25 03:12 Blood Pressure 151/86 H 06/27/25 03:12 Pulse Oximetry 100 06/27/25 03:12 Oxygen Delivery Room Air 06/27/25 02:15 MDM - Neuro Symptoms/Deficit MDM Narrative Medical decision making narrative: Patient presenting here with right sided numbness and heaviness, comes and goes, worse over last 4 hours. On exam her NIHSS stroke scale was 1 for paresthesias but otherwise normal neurologic exam. I am concerned for possible TIA/CVA; immediately CTA head and neck obtained, thankfully no acute abnormality, electrolyte only notable for potassium 4.2 which is repleted. Discussed with patient, neurologist, hospitalist for admission. Lab Data 06/27/25 01:58 06/27/25 02:38 Labs: Lab Results 06/27/25 06/27/25 06/27/25 Range/Units 01:52 01:58 02:03 WBC 6.5 (4.5-10.0) K/mm3 RBC 5.25 (4.2-5.4) M/mm3 Hgb 12.4 (12.0-15.0) g/dL Hct 38.8 (37.0-47.0) % MCV 73.9 L (80-100) fl MCH 23.6 L (26-34) pg MCHC 32.0 (32-36) g/dl RDW 15.7 H (11.5-14.5) % Plt Count 385 H (150-375) k/mm3 MPV 8.8 (7.4-10.4) fl Immature Gran % (Auto) 0.2 (0-0.5) % Neut % (Auto) 64.8 (45.5-73.1) % Lymph % (Auto) 20.2 (18.3-44.2) % [place] % (Auto) 9.8 H (2.6-8.5) % Eos % (Auto) 3.8 (0-4.4) % Baso % (Auto) 1.2 (0.2-1.2) % Lymph # (Auto) 1.31 (0.9-3.2) K/mm3 [place] # (Auto) 0.6 (0.1-0.6) K/mm3 Eos # (Auto) 0.3 (0-0.3) K/mm3 Baso # (Auto) 0.1 (0.0-0.1) K/mm3 Abs Immat Gran (auto) 0.01 (0.00-0.031) K/mm3 Absolute Neuts (auto) 4.2 (1.3-6.7) K/mm3 Absolute Nucleated RBC 0.000 (0.0-0.012) K/mm3 Band Neutrophils % Not Reportable Nucleated RBC % 0.0 (0.0-0.2) % Platelet Estimate Slightly increased (Adequate) Hypochromasia 1+ Ovalocytes Occasional Schistocytes None seen PT 12.6 (11.1-14.7) Seconds INR 0.9 APTT 20.0 L (22.3-36.8) Seconds Sodium (137-145) mmol/L Potassium (3.4-5.0) mmol/L Chloride (98-107) mmol/L Carbon Dioxide (22-30) mmol/L Anion Gap (4-12) mmol/L BUN (7-17) mg/dL Creatinine 0.90 (0.7-1.2) mg/dL Estim Creat Clear Calc Not Reportable Estimated GFR > 60 (59 - ) Glucose (65-110) mg/dL POC Capillary Glucose 136 H (65-105) mg/dl Calcium (8.4-10.2) mg/dL Total Bilirubin (0.2-1.3) mg/dL AST (14-36) U/L ALT (6-35) U/L Alkaline Phosphatase (38-126) U/L Troponin I (0.000-0.034) ng/mL Total Protein (6.3-8.2) g/dL Albumin (3.5-5.1) g/dL 06/27/25 Range/Units 02:38 WBC (4.5-10.0) K/mm3 RBC (4.2-5.4) M/mm3 Hgb (12.0-15.0) g/dL Hct (37.0-47.0) % MCV (80-100) fl MCH (26-34) pg MCHC (32-36) g/dl RDW (11.5-14.5) % Plt Count (150-375) k/mm3 MPV (7.4-10.4) fl Immature Gran % (Auto) (0-0.5) % Neut % (Auto) (45.5-73.1) % Lymph % (Auto) (18.3-44.2) % [place] % (Auto) (2.6-8.5) % Eos % (Auto) (0-4.4) % Baso % (Auto) (0.2-1.2) % Lymph # (Auto) (0.9-3.2) K/mm3 [place] # (Auto) (0.1-0.6) K/mm3 Eos # (Auto) (0-0.3) K/mm3 Baso # (Auto) (0.0-0.1) K/mm3 Abs Immat Gran (auto) (0.00-0.031) K/mm3 Absolute Neuts (auto) (1.3-6.7) K/mm3 Absolute Nucleated RBC (0.0-0.012) K/mm3 Band Neutrophils % Nucleated RBC % (0.0-0.2) % Platelet Estimate (Adequate) Hypochromasia Ovalocytes Schistocytes PT (11.1-14.7) Seconds INR APTT (22.3-36.8) Seconds Sodium 136 L (137-145) mmol/L Potassium 3.2 L (3.4-5.0) mmol/L Chloride 106 (98-107) mmol/L Carbon Dioxide 23 (22-30) mmol/L Anion Gap 7 (4-12) mmol/L BUN 9 (7-17) mg/dL Creatinine 0.85 (0.7-1.2) mg/dL Estim Creat Clear Calc 66 Estimated GFR > 60 (59 - ) Glucose 126 H (65-110) mg/dL POC Capillary Glucose (65-105) mg/dl Calcium 8.1 L (8.4-10.2) mg/dL Total Bilirubin 0.6 (0.2-1.3) mg/dL AST 27 (14-36) U/L ALT 24 (6-35) U/L Alkaline Phosphatase 42 (38-126) U/L Troponin I < 0.012 (0.000-0.034) ng/mL Total Protein 6.7 (6.3-8.2) g/dL Albumin 3.6 (3.5-5.1) g/dL Discharge Plan Discharge Clinical Impression: Transient ischemic attack Patient Disposition: Still a Patient Condition: Stable Patient Language: Sami Prescriptions: No Action fluconazole 150 mg tablet 150 mg PO Q72H Qty: 2 0RF nitrofurantoin monohyd/m-cryst [Macrobid] 100 mg capsule 100 mg PO Q12H 5 Days Qty: 10 0RF Rx Instructions: must administer with a meal/food phenazopyridine [Pyridium] 200 mg tablet 200 mg PO TID Qty: 6 0RF Follow-up/Referrals: Leslie,TRINO Shah [Primary Care Provider] Stand Alone Forms: Work/School Release IP
[2025-06-27 03:49] LABS: BEDSIDEPREGUCG Negative (Negative)
[2025-06-27 03:57] LABS: Add Urine Microscopic? YES; Appearance Urine Clear (Clear); Glucose Urine UA Negative (Negative); Leukocyte Esterase Ur Negative LEU/UL (Negative); Nitrate Urine Negative (Negative); Non Pathogenic Casts 0-2; Specific Grav Ur > 1.045 (1.001-1.035)
[2025-06-27] MEDS: POTASSIUM CHLORIDE 20 MEQ ER TABLET 40 MEQ PO (04:09)
--- NOTE | 2025-06-27 10:24 | ADMGEN ---
This patient, Rebecca Loredo, was admitted to 3 [facility] Surg Room 315-01. Patient/family oriented to hospital policies and general routines including ID bracelet, bed and alarms, visiting hours, pain management, procedures, bathroom and other care routines, personal items, smoking policy, room service/diet, and visiting hours. Information on how to activate the Rapid Response Team has been discussed. Patient/Family are encouraged to report perceived risks to care and to ask questions if they do not understand what they are told or what they should do.
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
--- NOTE | 2025-06-27 12:48 | ECHO_ITS ---
Patient Info Name: Rebecca Loredo Age: 54 years : 1970 Gender: Female Ht: 62 in Wt: 176 lbs BSA: 1.90 m2 HR: 85 bpm BP: 148 / 86 mmHg Technical Quality: Good Exam Date: 06/27/2025 2:27 PM Patient Status: I Admit Date: 06/27/2025 Exam Type: CA echo doppler w bubble study Complete two-dimensional, color flow and Doppler transthoracic echocardiogram is performed with agitated saline. Staff Referring Physician: Shirley Mckoy Spearer: Dinora Mir Attending Provider: Celi Perez Contrast/Agitated Saline Contrast/Ag. Saline: Agitated Saline Amount: 12.00 ml Existing IV Access: Yes IV Access Condition: patent with no signs of infiltration Summary 1. Left ventricular systolic function is normal, estimated at 65-70. 2. There is mildly increased left ventricular wall thickness. 3. The left ventricular diastolic function is normal. 4. Intact interatrial septum visualized by agitated saline imaging. 5. There is trace tricuspid valve regurgitation. 6. No pulmonary hypertension, estimated pulmonary arterial systolic pressure is 32 mmHg. Left Ventricle Left ventricular chamber dimension is normal. Left ventricular systolic function is normal, estimated at 65-70. There is mildly increased left ventricular wall thickness. Left ventricular septal wall motion is normal. The left ventricular diastolic function is normal. Right Ventricle Right ventricular chamber dimension is normal. Right ventricular systolic function is normal. Left Atria Left atrial chamber dimension is normal. Right Atria Right atrial chamber dimension is normal. Atrial Septum Intact interatrial septum visualized by agitated saline imaging. Aortic Valve The aortic valve is trileaflet. There is no aortic valve sclerosis. There is no aortic valve stenosis. There is no aortic valve regurgitation. Pulmonic Valve The pulmonic valve is normal. There is no pulmonic valve stenosis. There is no pulmonic regurgitation. Mitral Valve The mitral valve has normal leaflets. There is no mitral valve stenosis. There is no mitral valve regurgitation. Tricuspid Valve The tricuspid valve leaflets are normal. There is no significant tricuspid valve stenosis. There is trace tricuspid valve regurgitation. No pulmonary hypertension, estimated pulmonary arterial systolic pressure is 32 mmHg. Pericardium/Pleural The pericardium appears normal. There is no pericardial effusion. Inferior Vena Cava Normal inferior vena cava with >50% collapse upon inspiration consistent with normal right atrial pressure, 5 mmHg. Aorta The aortic root size at the sinus of Valsalva is normal. The prox ascending aorta size is normal. Left Ventricular Outflow Tract Name Value Normal LVOT 2D LVOT Diameter 1.8 cm LVOT Doppler LVOT Peak Velocity 149 cm/s LVOT Peak Gradient 9 mmHg LVOT Mean Gradient 5 mmHg LVOT VTI 30 cm LVOT VTI/AV VTI Ratio 0.8 LVOT Stroke Volume 74 ml LVOT CO 15.2 l/min LVOT CI 8.0 l/min/m2 Pulmonic Valve Name Value Normal PV Doppler PV Peak Velocity 115 cm/s PV Peak Gradient 5 mmHg Mitral Valve Name Value Normal MV Diastolic Function MV E Peak Velocity 80 cm/s MV A Peak Velocity 97 cm/s MV E/A 0.8 MV Decel Time (PW) 229 ms MV Annular TDI MV E/e' (Septal) 10.4 MV E/e' (Lateral) 7.0 MV E/e' (Average) 8.7 Tricuspid Valve Name Value Normal TV Regurgitation Doppler TR Peak Velocity 258 cm/s TR Peak Gradient 27 mmHg Estimated PAP/RSVP RA Pressure 5 mmHg <=5 PA Systolic Pressure 32 mmHg <36 RV Systolic Pressure 32 mmHg <36 TV Annular TDI TV Lateral [place] s' Velocity 14.9 cm/s >=9.5 Aorta Name Value Normal Ascending Aorta Ao Root Diameter (MM) 3.0 cm Ao Root Diam Index (MM) 1.6 cm/m2 Aortic Valve Name Value Normal AV Doppler AV Peak Velocity 179 cm/s AV Peak Gradient 13 mmHg AV Mean Gradient 8 mmHg AV VTI 36 cm AV Area (Cont Eq VTI) 2.1 cm2 >=3.0 AV Area (Cont Eq Darren) 2.1 cm2 AV DI (Darren) 0.84 AV Regurgitation 2D LVOT Area 2.5 cm2 Ventricles Name Value Normal LV Dimensions 2D/MM IVS Diastolic Thickness (2D) 1.1 cm 0.6-1.0 LVID Diastole (2D) 3.9 cm 3.8-5.2 LVIW Diastolic Thickness (2D) 1.0 cm 0.6-0.9 LVID Systole (2D) 2.6 cm 2.2-3.5 LVOT Diameter 1.8 cm LV Mass (2D Cubed) 130.07 g 67.00-162.00 LV Mass Index (2D Cubed) 68 g/m2 43-95 Relative Wall Thickness (2D) 0.52 <=0.42 LV Fractional Shortening/Ejection Fraction 2D/MM LV Fractional Shortening (2D) 32 % 27-45 LV EF (2D Teichlaura) 61 % LV Diastolic Volume (4C MOD) 80 ml LV EF (4C MOD) 77 % LV Diastolic Volume (2C MOD) 77 ml LV EF (2C MOD) 76 % LV Diastolic Volume (BP MOD) 80 ml 46-106 LV Diastolic Volume Index (BP MOD) 42 ml/m2 29-61 LV Systolic Volume (BP MOD) 18 ml 14-42 LV Systolic Volume Index (BP MOD) 10 ml/m2 8-24 LV EF (BP MOD) 77 % 54-74 LV Diastolic Length (4C) 7.2 cm LV Systolic Length (4C) 5.6 cm LV Stroke Volume (4C MOD) 61 ml RV Dimensions 2D/MM RVID Diastole (2D) 3.4 cm 2.1-3.5 Atria Name Value Normal LA Dimensions LA Dimension (MM) 3.5 cm 2.7-3.8 LA Volume (4C A-L) 47 ml LA Volume (BP A-L) 46 ml RA Dimensions RA Systolic Major [place] Length (4C) 3.7 cm 2.2-2.8 RA Area (4C) 8.1 cm2 <=18.0 Report Signatures
--- NOTE | 2025-06-27 13:00 | WPDNEURCNPN ---
Assessment and Plan Assessment and plan (1) Plexopathy: Code(s): G54.9 - Nerve root and plexus disorder, unspecified Status: Acute Plan 1. Admitted for the possibility of TIA 2 right upper extremity discomfort could be related to the plexopathy secondary to over exertion. 3. Further workup as being done and also will benefit from the EMG and nerve conduction study as an outpatient in about 4 weeks. If any further question arises please do not hesitate to contact me Consult date: 06/27/25 HPI: Rebecca Loredo is a 54 year old female Admitted to the hospital through the emergency room with complaint of paresthesias a few weeks duration in addition to the sensation of heaviness to her right upper extremity. Patient reportedly was painting almost for 4hours and subsequently developed paresthesia and heaviness in her right upper extremity. She is not allergic to any medications. She does have ongoing history of anemia. She is never a smoker. And on initial examination her exam in the ER was normal except the blood pressure being 173/96. It came down to 151/86. Patient was admitted to the hospital for the possibility of TIA, CBC was normal, BMP with potassium 3.2, mast scan normal, initial CT scan of the head normal negative for the bleed and head and neck CTA was normal with no evidence of aneurysm. Chest x-ray was negative. Patient has been admitted to the hospital for the diagnosis of TIA her symptomatology has completely resolved. Review of Systems Review of Systems: All systems reviewed & are unremarkable except as noted in HPI and below PMFSH Past Medical History Medical History Anxiety Anemia Surgical History Surgical History No pertinent past surgical history Family History Family History Mother Family history non-contributory Diabetes mellitus Hypertension Social History Social History Smoking status: Never smoker Second hand tobacco smoke exposure: No Alcohol intake: never Substance use: never Lack of Transportation: No Lack of Food: Never True Current Housing: I Have Housing Concerned About Future Housing: No Difficulty Paying Gas/Electric Bills: No Difficulty Paying for Meds: YES Currently Unemployed: No Education: Master's Degree or Higher Difficulty w/ Childcare or Family Care: No Gender identity (if verbalized by the patient): Female Spiritual care concerns: No Meds Home Medications and Allergies Home Medications ?Medication ?Instructions ?Recorded ?Confirmed ?Type cyanocobalamin (vitamin B-12) 1,000 mcg subcut .COMPLEX 06/27/25 06/27/25 History 1,000 mcg/mL injection solution escitalopram oxalate 10 mg tablet 20 mg PO DAILY 06/27/25 06/27/25 History hydroxyzine HCl 25 mg tablet 25 mg PO DAILY PRN anxiety 06/27/25 06/27/25 History norethindrone acetate 5 mg tablet 10 mg PO DAILY 06/27/25 06/27/25 History (Chavez) ondansetron HCl 8 mg tablet 8 mg PO Q8H PRN nausea and vomiting 06/27/25 06/27/25 History tirzepatide (weight loss) 7.5 7.5 mg subcut WEEKLY 06/27/25 06/27/25 History mg/0.5 mL subcutaneous pen injector (Aros PharmapbAcompli) Allergies Allergy/AdvReac Type Severity Reaction Status Date / Time No Known Allergies Allergy Verified 06/27/25 10:25 Vital Signs Vital Signs - 24 hr 06/27/25 02:15 06/27/25 02:18 06/27/25 02:18 Temperature 36.7 C Pulse Rate 84 85 86 Respiratory Rate 16 19 16 Blood Pressure 173/96 H 173/96 H 173/96 H Pulse Oximetry 100 100 100 Oxygen Delivery Room Air 06/27/25 02:33 06/27/25 03:12 06/27/25 05:46 Temperature Pulse Rate 83 83 80 Respiratory Rate 14 16 Blood Pressure 151/86 H 148/85 H Pulse Oximetry 100 100 Oxygen Delivery 06/27/25 06:00 06/27/25 07:22 06/27/25 08:00 Temperature Pulse Rate 79 79 Respiratory Rate 20 14 Blood Pressure 140/81 150/85 H Pulse Oximetry 99 99 100 Oxygen Delivery 06/27/25 08:45 06/27/25 09:32 Temperature 36.7 C Pulse Rate 78 95 Respiratory Rate 19 20 Blood Pressure 155/96 H 148/86 H Pulse Oximetry 100 100 Oxygen Delivery Exam Narrative: On examination today she is awake alert cooperative in no obvious acute distress, his speech not dysphasic not dysarthric not dysphonic, head normocephalic with no bruit, neck supple with no bruit, heart regular with no murmur, lungs clear to auscultation with no rhonchi or crepitations, abdomen soft nontender with organomegaly, neurologically she is awake alert oriented x3, his speech not dysphasic not dysarthric not dysphonic, pupils round regular, feels the vision full in all 4 quadrants, extraocular movements full with no nystagmus, facial sensation intact, face symmetrical, uvula in the midline, tongue in the midline with no fasciculation, motor examination revealed her to have normal strength proximally and distally in upper and lower extremities with symmetrical deep tendon reflexes and downgoing plantar responses without evidence of any ataxia or dysmetria on [id number]-finger or heel to knee to acuña. Results Labs 06/27/25 01:58 06/27/25 02:38 Labs: Short CBC 06/27/25 Range/Units 01:58 WBC 6.5 (4.5-10.0) K/mm3 Hgb 12.4 (12.0-15.0) g/dL Hct 38.8 (37.0-47.0) % Plt Count 385 H (150-375) k/mm3 BMP 06/27/25 06/27/25 02:03 02:38 Sodium 136 L Potassium 3.2 L Chloride 106 Carbon Dioxide 23 BUN 9 Creatinine 0.90 0.85 Glucose 126 H Calcium 8.1 L Cardiac Enzymes 06/27/25 Range/Units 02:38 Troponin I < 0.012 (0.000-0.034) ng/mL Liver Function 06/27/25 Range/Units 02:38 Total Bilirubin 0.6 (0.2-1.3) mg/dL AST 27 (14-36) U/L ALT 24 (6-35) U/L Alkaline Phosphatase 42 (38-126) U/L Albumin 3.6 (3.5-5.1) g/dL Urine 06/27/25 Range/Units 03:45 Urine Color Yellow (Yellow) Urine Appearance Clear (Clear) Urine pH 7.5 (5.0-9.0) Ur Specific [place] > 1.045 H (1.001-1.035) Urine Protein Negative (Negative) mg/dL Urine Glucose (UA) Negative (Negative) mg/dL
[2025-06-27] MEDS: KETOROLAC 30 MG/ML VIAL (*BKC) IV PUSH (17:24)
[2025-06-28] VITALS: PULSE 77
[2025-06-28 04:00] VITALS: PULSE 80
[2025-06-28 06:00] VITALS: BP 131/66; PULSE 77; RESP 14; TEMP 36.6; O2SAT 99
[2025-06-28 06:28] LABS: Hematocrit 37.2 % (37.0-47.0); Hemoglobin 11.9 g/dL (12.0-15.0); Immature Granulocyte Percent A 0.6 % (0-0.5); Lymphocytes Absolute Auto 1.10 K/mm3 (0.9-3.2); Mean Corpuscular HGB Conc 32.0 g/dl (32-36); Mean Corpuscular Hemoglobin 23.8 pg (26-34); Mean Corpuscular Volume 74.5 fl (80-100); Nucleated Red Blood Cells Absolute Auto 0.000 K/mm3 (0.0-0.012); Nucleated Red Blood Cells Perc 0.0 % (0.0-0.2); Platelet Count Result 367 k/mm3 (150-375); Red Blood Count 4.99 M/mm3 (4.2-5.4); White Blood Count 5.0 K/mm3 (4.5-10.0)
[2025-06-28 06:36] LABS: Hemoglobin A1C 6.0 % (<5.7)
[2025-06-28 06:56] LABS: Anion Gap 8 mmol/L (4-12); Blood Urea Nitrogen 11 mg/dL (7-17); Calcium 8.6 mg/dL (8.4-10.2); Carbon Dioxide 21 mmol/L (22-30); Chloride 109 mmol/L (98-107); Cholesterol 170 mg/dL (0-200); Estimated CRCL calculation 66 ml/min; Estimated Glomerular Filt Rate > 60; Glucose 101 mg/dL (65-110); HDL Direct 35 mg/dL; Potassium 3.8 mmol/L (3.4-5.0); Sodium 138 mmol/L (137-145); Triglycerides 56 mg/dL (<150)
[2025-06-28 07:26] LABS: Hypochromasia Occasional; Schistocytes None Seen
[2025-06-28 08:00] VITALS: PULSE 84
[2025-06-28] MEDS: ASPIRIN 81 MG ENTERIC TABLET PO (08:11)
[2025-06-28] MEDS: CLOPIDOGREL BISULFATE 75 MG TABLET PO (08:12)
[2025-06-28] MEDS: ESCITALOPRAM OXALATE 10 MG TABLET 20 MG PO (08:12)
[2025-06-28] MEDS: ATORVASTATIN 40 MG TABLET PO (08:12)
[2025-06-28] MEDS: CYANOCOBALAMIN INJ 1,000 MCG/ML VIAL 1000 MCG SUB-Q (08:36)
[2025-06-28 14:00] VITALS: BP 171/92; PULSE 80; RESP 16; TEMP 36.2; O2SAT 97
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
--- NOTE | 2025-06-28 15:36 | WPDNEUROPN ---
Subjective Date/time seen: 06/28/25 15:36 Interval history: MRI has been read with acute infarct in left basal ganglia without any hemorrhage or mass, patient is receiving multiple pain medication as outlined previously, will benefit from the EMG nerve conduction study as an outpatient advised the patient and also the nurse to order as an outpatient. Objective Data Vital Signs Vital Signs: Vital Signs - 24 hr 06/27/25 16:16 06/27/25 20:00 06/27/25 20:00 Temperature Pulse Rate 80 81 Respiratory Rate Blood Pressure Pulse Oximetry Oxygen Delivery Room Air 06/27/25 21:26 06/28/25 00:00 06/28/25 04:00 Temperature 36.8 C Pulse Rate 71 77 80 Respiratory Rate 14 Blood Pressure 169/86 H Pulse Oximetry 100 Oxygen Delivery 06/28/25 06:00 06/28/25 08:00 06/28/25 14:00 Temperature 36.6 C 36.2 C L Pulse Rate 77 84 80 Respiratory Rate 14 16 Blood Pressure 131/66 171/92 H Pulse Oximetry 99 97 Oxygen Delivery Intake/Output Intake/Output: Intake & Output 06/25/25 06/26/25 06/27/25 06/28/25 23:59 23:59 23:59 23:59 Intake Total 1220 1244 Balance 1220 1244 Meds/Results Medications: Active Medications Generic Name Dose Route Start Last Admin Trade Name Freq PRN Reason Stop Dose Admin Acetaminophen 650 mg 06/27/25 12:48 Acetaminophen 325 Mg Tablet PO Q6H PRN Mild Pain (1-3) or Fever Aspirin 81 mg 06/28/25 09:00 06/28/25 08:11 Aspirin 81 Mg Enteric Tablet PO 81 mg QAM KATARZYNA Administration Atorvastatin Calcium 40 mg 06/28/25 09:00 06/28/25 08:12 Atorvastatin 40 Mg Tablet PO 40 mg DAILY KATARZYNA Administration Clopidogrel Bisulfate 75 mg 06/28/25 09:00 06/28/25 08:12 Clopidogrel Bisulfate 75 Mg Tablet PO 75 mg QAM KATARZYNA Administration Cyanocobalamin 1,000 mcg 06/27/25 09:00 06/28/25 08:36 Cyanocobalamin Inj 1,000 Mcg/Ml Vial SUB-Q 1,000 mcg Q21D KATARZYNA Administration Docusate Sodium 100 mg 06/27/25 12:48 Docusate Sodium 100 Mg Capsule PO Q12H PRN Constipation Escitalopram Oxalate 20 mg 06/28/25 09:00 06/28/25 08:12 Escitalopram Oxalate 10 Mg Tablet PO 20 mg DAILY KATARZYNA Administration Hydroxyzine HCl 25 mg 06/27/25 12:49 Hydroxyzine Hcl 25 Mg Tablet PO DAILY PRN Anxiety Miscellaneous Information 1 each 06/27/25 00:01 Nonformulary Drug (Norethindrone Acetate [Gallifrey] 5 Mg Tablet)Can Ptient Use From Home? XX 07/27/25 00:00 CLARIFY KATARZYNA Non-Formulary Medication 10 mg 06/28/25 09:00 Norethindrone Acetate [Gallifrey] PO 07/28/25 08:59 DAILY KATARZYNA Ondansetron HCl 4 mg 06/27/25 12:48 Ondansetron Hcl Odt 4 Mg Tablet PO Q6H PRN Nausea And Vomiting Perflutren Lipid Microsphere 0 ml 06/27/25 12:48 Perflutren Lipid Microspheres 1.5 Ml Vial Diluted To 10 Ml Total Volume IV PUSH 06/30/25 12:48 ONCE PRN adequate visualization Protocol Radiology Results: ITS Impressions Chest X-Ray 06/27/25 05:58 IMPRESSION: 1. No acute cardiopulmonary findings given portable technique. Head/Neck CTA 06/27/25 08:04 IMPRESSION: 1. Normal brain. 2. No aneurysm or significant intracranial canal stenosis. 3. 0% stenosis of the proximal internal carotid arteries relative to normal distal artery lumen diameters (NASCET criteria). Head CT 06/27/25 08:22 IMPRESSION: 1. Normal brain. Brain MRI 06/28/25 11:07 IMPRESSION: 1. Acute infarct in the left basal ganglia. Labs Labs: Laboratory Results - last 24 hr 06/28/25 06:15 WBC 5.0 RBC 4.99 Hgb 11.9 L Hct 37.2 MCV 74.5 L MCH 23.8 L MCHC 32.0 RDW 15.6 H Plt Count 367 MPV 8.8 Immature Gran % (Auto) 0.6 H Neut % (Auto) 61.4 Lymph % (Auto) 22.0 [place] % (Auto) 10.2 H Eos % (Auto) 4.0 Baso % (Auto) 1.8 H Lymph # (Auto) 1.10 [place] # (Auto) 0.5 Eos # (Auto) 0.2 Baso # (Auto) 0.1 Abs Immat Gran (auto) 0.03 Absolute Neuts (auto) 3.1 Absolute Nucleated RBC 0.000 Band Neutrophils % Not Reportable Nucleated RBC % 0.0 Platelet Estimate Adequate Hypochromasia Occasional Schistocytes None seen Sodium 138 Potassium 3.8 Chloride 109 H Carbon Dioxide 21 L Anion Gap 8 BUN 11 Creatinine 0.86 Estim Creat Clear Calc 66 Estimated GFR > 60 Glucose 101 Hemoglobin A1c 6.0 H Calcium 8.6 Triglycerides 56 Cholesterol 170 LDL Cholesterol Direct 108 HDL Direct 35
--- NOTE | 2025-07-03 08:41 | PC.NURSE ---
Ordered faxed to Neurology for EMG per Dr. Cortez order.
== END 2025-06-28 17:10 | disposition home or self-care (01) ==
LOC: ANHED 03:33 → ANH3MEDSUR 06-28 09:58
PROVIDERS: Student in an Organized Health Care Education/Training Program; Admitting Provider General Practice; Emergency Provider Emergency Medicine; PCP Registered Nurse; Visit Provider General Practice
DX: G45.9 Transient cerebral ischemic attack, unspecified (principal); G54.9 Nerve root and plexus disorder, unspecified; R03.0 Elevated blood-pressure reading, without diagnosis of hypertension; D64.9 Anemia, unspecified; F41.9 Anxiety disorder, unspecified
CPT/HCPCS: 36415; 70450; 70496; 70498; 70553; 71045; 80048; 80053; 80061; 81001; 81025; 82948; 83036; 84484; 85025; 85610; 85730; 93005; 93306; 96372; 96374; 96375; 99285; A9270; A9577; G0378; J1885; J3420; Q9967

== ENCOUNTER 2025-08-15 09:33 | Outpatient (CLI) | payer BC, SELFPAY ==
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
--- OUTSIDE RECORDS SUMMARY | 2024-10-13 04:12 | XMS_ITS ---
Author Organization [facility] Address [address] [facility] [address] [place] [address] Care Team Providers Care Fishing Vessel Operator Name Role Phone Leslie Alyssa Primary Care Provider Carson Jules Unavailable [phone] REASON FOR VISIT rx MEDICATIONS Medication SIG (Take, Route, Fr equency, Duration) Notes Start Date End Date Status traMADol HCl 50 MG 1 tablet as needed O rally every 6-8 hours 10/13/2024 Active Encounters Encounter Location Date Provider Diagnosis [facility] [address] [facility] [address] [place] [address] 10/13/2024 Carson Baldwin PLAN OF TREATMENT Medication Medication Name Sig Start Date Stop Date Notes traMADol HCl 50 MG 1 tablet as needed O rally every 6-8 hours 10/13/2024
--- OUTSIDE RECORDS SUMMARY | 2024-11-03 08:39 | XMS_ITS ---
Author Organization [facility] [address] [facility] [address] [place] [address] Care Team Providers Care Shotblast Operator Name Role Phone Leslie Alyssa Primary Care Provider Carson Jules Unavailable [phone] RESULTS Component Value Reference Range Notes Thoracic and Lumbar MRI with out contrast Reviewed date:11/03/2024 03:11:08 PM Interpretation: Performing Lab: Notes/Report: REASON FOR VISIT Medication PROBLEMS Problem Type ICD Code Onset Dates Problem Status W/U Status Risk SNOMED Code Notes Problem Lumbar radiculopathy (M54.16) Active confirmed Lumbar radiculopathy (335364959) Problem Thoracic radiculopathy (M54.14) Active confirmed Thoracic radiculopathy (12255523) Encounters Encounter Location Date Provider Diagnosis [facility], [place] [address] [facility] [address] [place] [address] 11/03/2024 Carson Baldwin Lumbar radiculopathy M54.16 and Thoracic radiculopathy M54.14 ASSESSMENTS Encounter Date Diagnosis Assessment Notes Treatment Notes Treatment Clinical Notes Section Notes 11/03/2024 Lumbar radiculopathy (ICD-10 - M54.16) 11/03/2024 Thoracic radiculopathy (ICD-10 - M54.14) PLAN OF TREATMENT No Information
--- OUTSIDE RECORDS SUMMARY | 2024-11-08 04:36 | XMS_ITS ---
Author Organization [facility] Address [address] [place] [address] Care Team Providers Care Counter Top Assembler Name Role Phone Leslie Alyssa Primary Care Provider Carson Jules Unavailable [phone] REASON FOR REFERRAL Reason Eval and Treat Diagnosis 1 Shoulder pain (M25.5 19) Referral Organization [facility] Referring Provider First Name Carson Referring Provider Last Name Nicolasa Referring Provider Speciality Orthopedic Surgery Referred Provider Storm Avendano Referred Provider Specialty Orthopedic S urgery Referral Priority Routine REASON FOR VISIT referral to Dr. Avendano Encounters Encounter Location Date Provider Diagnosis [facility] [address] [facility] [address] [place] [address] 11/08/2024 Carson Baldwin PLAN OF TREATMENT Referrals Referral Date Details Eval and Treat, Julio Avendano Consultation Request Notes Referral Date Referring Provider Referred Provider Not giuliana 11/08/2024 Carson Baldwin Matthew Eval and Tr eat
--- OUTSIDE RECORDS SUMMARY | 2024-11-08 05:33 | XMS_ITS ---
Author Organization [facility] Address [address] [place] [address] Care Team Providers Care Leading Firefighter Name Role Phone LeslieAlyssa Primary Care Provider Carson Jules Unavailable [phone] REASON FOR REFERRAL Reason Eval and Treat Diagnosis 1 Cervicalgia (M54.2) Referral [facility] Referring Provider First Name Carson Referring Provider Last Name Nicolasa Referring Provider Speciality Orthopedic Surgery Referred Provider Kristin Coy Referred Provider Specialty Physical Med icine and Rehabilitation Referral Priority Routine REASON FOR VISIT SNN MRI Thor & Lumb PROBLEMS Problem Type ICD Code Onset Dates Problem Status W/U Status Risk SNOMED Code Notes Problem Cervicalgia (M54.2) Active confirmed Cervicalgia ([id number]) Encounters Encounter Location Date Provider Diagnosis [facility] [address] [place] [address] 11/08/2024 Carson Baldwin PLAN OF TREATMENT Referrals Referral Date Details Eval and Treat, Apollo Coy Consultation Request Notes Referral Date Referring Provider Referred Provider Not giuliana 11/08/2024 Carson Baldwin Patricia Eval and T reat
--- OUTSIDE RECORDS SUMMARY | 2025-06-28 03:00 | XMS_ITS ---
Author Organization [facility] [employer] Address [address] [place] [address] Care Team Providers Care Flight Service Agent Name Role Phone KristiVenkat fraserjay Unavailable [phone] REASON FOR VISIT PT is in the hospital Social History Sex Assigned At : Social History Observation Description Sex Assigned At Female Encounters Encounter Location Date Provider Diagnosis [facility] [address] [facility] [address] [place] [address] 06/28/2025 Rylan Morin Plan Of Treatment Next Appt Details Provider Name:Rylan Morin , 08/28/2025 02:45:00 PM, [address], [facility] [address], [place], [address], Provider Name:Milton amaya, 08/30/2025 02:00:00 PM, [address], [address], [address], Progress Notes * Rebecca LOREDO LDOB:[birth year] (54 yo F)Acc No.[id number]:06/28/2025 Patient: Ladny donovanRebecca tidwell Provider: Ron MORIN MD :1970 A ge:54 Y S ex:Female Date:06/28/2025 [facility] [facility] [facility] Subjective: * Chief Complaints: * P T is in the hospital * Active Problem List F43.12 Chronic post-traumat ic stress disorder (PTSD) Modified On:07/28/2025 Status:confirmed F33.2 Major depressive dis order, recurrent severe without psychotic features Modified On:07/28/2025 Status:confirmed F43.10 Post-traumatic stres s disorder, unspecified Modified On:07/28/2025 Status:confirmed I63.9 Cerebral infarction, unspecified Modified On:07/28/2025 Status:confirmed F41.9 Anxiety disorder, un specified Modified On:07/28/2025 Status:confirmed * Electronic signature of Janell Morin MD on 08/15/2025 at 09:57 AM 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
--- OUTSIDE RECORDS SUMMARY | 2025-08-15 09:57 | XMS_ITS | Patient Health Record ---
Author Organization [facility] Address [address] [place], [place] [address] Care Team Providers Care Distribution Operation Supervisor Name Role Phone OlegSHAY mcdowell Unavailable [phone] Reason For Referral No Information Medications Medication SIG (Take, Route, Frequency, Duration) Notes Start Date End Date Status Medrol Dosepak ORAL Medrol DosepakOr iginal MedicationMedrol Dosepak *Reorder from [facility] [facility] for eRx and Interaction Alerts* 5 Active betamethasone 0.5 MG/ML / clotrimazole 10 MG/ML Topical Cream [Lotrisone] CUTANEOUS betamethasone 0.5 MG/ML / clotrimazole 10 MG/ML Topical Cream [Lotrisone]Original Medicationbetamethasone 0.5 MG/ML / clotrimazole 10 MG/ML Topical Cream [Lotrisone] *Reorder from [facility] for eRx and Interacti 4 Active Social History Social History Additional Details Category Social Info Options Details Migrated Social History Migrated Social History Smoking Status : Never smoked , History of tobacco use : Plan Of Treatment No Information Insurance Providers Payer Name Payer Address Payer Phone Subscriber Number Group Number Insured Name Patient Relationship to Insured Coverage Start Date Coverage End Date [facility] [address] [place] [address] [id number] MAX NAVA Self - patient is the insured [facility] ([facility]) ATTN CLAIMS [address] [place] [address] [id number] MAX NAVA Self - patient is the insured
--- OUTSIDE RECORDS SUMMARY | 2025-08-15 09:57 | XMS_ITS | Patient Health Record ---
Author Organization [facility] Address [address] [place] [address] Care Team Providers Care Veterinary Technologist Name Role Phone Rylan Berry Unavailable [phone] Allergies No Known Allergies Results Component Value Reference Range Notes UDT Reviewed date:07/28/2025 02:18:01 PM Interpretation: Performing Lab: Notes/Report: Amphetamine (AMP) N Buprenorphine (BUP) N Oxazepam (BZO) N Cocaine (NHAN) N Methamphetamine (mAMP) N Methylenedioxymethamphetamine (MDMA) N Morphine (MOP) N Methadone (MTD) N Oxycodone (OXY) N THC N Reason For Referral No Information Medications Medication SIG (Take, Route, Frequency, Duration) Notes Start Date End Date Status QUEtiapine Fumarate ER 50 MG Tablet Extended Release 24 Hour 1 tablet in the evening Orally Once a day; Duration: 30 days 08/11/2025 Active Escitalopram Oxalate 20 MG Tablet 1 tablet Oral Once a day; Duration: 30 days Active Aspirin Low Dose 81 MG Tablet Delayed Release TAKE 1 TABLET BY MOUTH EVERY MORNING Oral; Duration: 30 Days Active Atorvastatin Calcium 40 MG Tablet TAKE 1 TABLET BY MOUTH DAILY Oral; Duration: 30 Days Active Clopidogrel Bisulfate 75 MG Tablet 1 tablet Oral Once a day; Duration: 30 days Active Zepbound 7.5 MG/0.5ML Solution Auto-injector ADMINISTER 7.5 MG UNDER THE SKIN 1 TIME A WEEK FOR WEIGHT LOSS Subcutaneous; Duration: 28 Days Not-Taking Vitamin D (Ergocalciferol) 1.25 MG (77283 UT) Capsule Oral; Duration: 28 Days Active Social History Tobacco Use: Social History Observation Description Date Details (start date - stop date) Never Smoker NA - NA Sex Assigned At : Social History Observation Description Sex Assigned At Female Social History Social History Social Info Question Answer Notes Household: Marital Status: Number of Adults in household: 2 Number of Children in Household: 0 Drug/Alcohol: Social Info Question Answer Notes Drugs Have you used drugs other than those for medical reasons in the past 12 months? No AUDIT-C (Standard) Did you have a drink containing alcohol in the past year? 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 Education: Doctorate in education, completed in 2017 Living situation: Lives with Problems Problem Type SNOMED Code ICD Code Onset Dates Problem Status W/U Status Risk Notes Problem Severe recurrent major depression without psychotic features (88625599) Major depressive disorder, recurrent severe without psychotic features (F33.2) Active confirmed Problem Anxiety disorder (722762339) Anxiety disorder, unspecified (F41.9) Active confirmed Problem Post-traumatic stress disorder (42522149) Post-traumatic stress disorder, unspecified (F43.10) Active confirmed Problem Cerebral infarction (263589688) Cerebral infarction, unspecified (I63.9) Active confirmed Problem Posttraumatic stress disorder (75136364) Chronic post-traumatic stress disorder (PTSD) (F43.12) Active confirmed Vital Signs Heart Rate 66 /min 08/11/2025 Height-cm 157.48 cm 08/11/2025 Blood pressure diastolic 89 mm Hg 08/11/2025 Weight-kg 77.11 kg 08/11/2025 Height 62 in 08/11/2025 Blood pressure systolic 160 mm Hg 08/11/2025 Weight 170 lbs 08/11/2025 BMI 31.09 kg/m2 08/11/2025 Encounters Encounter Location Date Provider Diagnosis [facility] [address] [place] [address] 07/28/2025 Rylan Berry Chronic post-traumat ic stress disorder (PTSD) F43.12 ; Major depressive disorder, recurrent severe without psychotic features F33.2 ; Cerebral infarction, unspecified I63.9 and Anxiety disorder, unspecified F41.9 [facility] [address] [place] [address] 08/11/2025 Rylan Berry Major depressive disorder, recurrent severe without psychotic features F33.2 ; Chronic post-traumatic stress disorder (PTSD) F43.12 ; Cerebral infarction, unspecified I63.9 and Anxiety disorder, unspecified F41.9 [facility] [address] [place] [address] 08/14/2025 Rylan Kristi [facility] [address] [place] [address] 07/31/2025 [facility] [address] [place] [address] 07/31/2025 Rylan [facility] Chronic post-traumat ic stress disorder (PTSD) F43.12 [facility] [address] [place] [address] 07/31[facility] [place] [address] [place] [address] 07/31/2025 Rylan [facility] Chronic post-traumat ic stress disorder (PTSD) F43.12 Assessments Encounter Date Diagnosis (ICD Code) Assessment Notes Treatment Notes Treatment Clinical Notes Section Notes 07/28/2025 Chronic post-traumatic stress disorder (PTSD) (ICD-10 - F43.12) PTSD symptoms including flashbacks and sleep disturbance, triggered by son's and work environment. Complicates depression and anxiety. - Initiated quetiapine to help with sleep and mood stabilization. - Refer to psychiatry for further evaluation. 07/31/2025 Chronic post-traumatic stress disorder (PTSD) (ICD-10 - F43.12) 07/31/2025 Chronic post-traumatic stress disorder (PTSD) (ICD-10 - F43.12) 08/11/2025 Major depressive disorder, recurrent severe without psychotic features (ICD-10 - F33.2) Patient reports improvement in sleep over the past two weeks. Antidepressant therapy ongoing. - Continue Lexapro in the evening. - Monitor for further improvement in mood and sleep. 07/28/2025 Major depressive disorder, recurrent severe without psychotic features (ICD-10 - F33.2) Persistent and worsening depression since stroke and son's . Complicated by anxiety, panic attacks, and sleep disturbance. Current medications include escitalopram, buspirone, lorazepam, and newly started quetiapine. No evidence of suicidal or homicidal ideation. - Initiated quetiapine 50 mg tablet in the evening, 2-4 hours before bedtime, with dose adjustment as needed. - Continue escitalopram 20 mg in the morning. - Continue buspirone 5 mg twice a day. - Refer to psychiatry for further management. 07/28/2025 Cerebral infarction, unspecified (ICD-10 - I63.9) Recent stroke with residual symptoms and ongoing fear of recurrence. Hospitalization and neurologist involvement. Current management includes antiplatelet therapy and statin. - Continue aspirin daily. - Continue Plavix daily. - Continue atorvastatin 40 mg. 08/11/2025 Chronic post-traumatic stress disorder (PTSD) (ICD-10 - F43.12) Patient reports anxiety and panic attacks two to three times per week, often triggered by work-related stress. Episodes are associated with confusion and forgetfulness. Daytime anxiety is less frequent, possibly due to distraction. Patient stopped Zeppon due to fear of weight loss. Patient uses deep breathing and coworker support to manage symptoms. - Continue escitalopram in the morning. - Continue Lexapro in the evening. - Discussed possible addition of propranolol for anxiety, but patient declined due to concerns about blood pressure. - Plan to wait and watch for two weeks to assess improvement. - Neurology referral for further evaluation. 08/11/2025 Cerebral infarction, unspecified (ICD-10 - I63.9) Patient has a history of stroke affecting the left side. Recent nerve conduction study performed. Awaiting neurology appointment for further evaluation. - Neurology referral for evaluation of post-stroke symptoms. 07/28/2025 Anxiety disorder, unspecified (ICD-10 - F41.9) Severe anxiety, worsened by work stress and recent stroke. Ongoing panic attacks and difficulty coping. Current management includes buspirone and lorazepam. - Continue buspirone 5 mg twice a day. - Continue lorazepam as directed before procedures. 08/11/2025 Anxiety disorder, unspecified (ICD-10 - F41.9) 07/28/2025 Other Learning About Depression Screening material was printed <tr><td style=width:40 0px><span qjjlf=em895>H GB A1C</span> (10/01/2024 - 01/19/2025)</td > <td>6.0 to <span hjlzi=by074>6 .1</span></td> <td><span dokuz=pl839>6 .1</span></td> <td></td> </tr> <tr> <td style=width:40 0px><span cqmav=bh043>R DW</span> (02/06/2025)</t d> <td><span yskjf=pq062>1 4.6 (H)</span></td> <td><span amkwx=xd825>1 4.6 (H)</span></td> <td>11.5 % - 14.5 %</td> </tr> <tr> <td style=width:40 0px><span iyxcq=ip823>M CH</span> (02/06/2025)</t d> <td><span qktnm=wh016>2 5.7 (L)</span></td> <td><span hkwoj=be538>2 5.7 (L)</span></td> <td>27.2 pg - 32.6 pg</td> </tr> <tr> <td style=width:40 0px><span pgmke=yn391>P LATELETS</span> (02/06/2025)</t d> <td><span jjvzz=kn134>3 56 (H)</span></td> <td><span vryep=gr896>3 56 (H)</span></td> <td>140 K/uL - 350 K/uL</td> </tr> <tr> <td style=width:40 0px><span flmdz=gn885>R BC</span> (02/06/2025)</t d> <td><span rxxea=kk621>4 .94 (H)</span></td> <td><span nibkg=ad956>4 .94 (H)</span></td> <td></td> </tr> <tr> <td style=width:40 0px><span cllql=yq359>M CV</span> (02/06/2025)</t d> <td><span xljoj=cc743>7 8.3 (L)</span></td> <td><span vyght=bk483>7 8.3 (L)</span></td> <td>82.0 fL - 99.0 fL</td> </tr> <tr> <td style=width:40 0px><span ejysp=lv075>M PV</span> (02/06/2025)</t d> <td><span qtzdu=gr653>9 .2 (L)</span></td> <td><span oohsc=ww299>9 .2 (L)</span></td> <td>9.3 fL - 12.4 fL</td> </tr> <tr> <td style=width:40 0px><span ghtht=nw194>H EMOGLOBIN</span > (02/06/2025)</t d> <td>12.7</td> <td>12.7</td> <td>11.8 g/dL - 14.8 g/dL</td> </tr> <tr> <td style=width:40 0px><span hyzmr=gr251>H EMATOCRIT</span > (02/06/2025)</t d> <td>38.7</td> <td>38.7</td> <td>35.5 % - 44.0 %</td> </tr> <tr> <td style=width:40 0px><span baach=lq272>M CHC</span> (02/06/2025)</t d> <td>32.8</td> <td>32.8</td> <td>31.5 g/dL - 35.5 g/dL</td> </tr> <tr> <td style=width:40 0px><span tlmpp=pa238>R DW-STDEV</span> (02/06/2025)</t d> <td>41.8</td> <td>41.8</td> <td>37.1 fL - 48.7 fL</td> </tr> <tr> <td style=width:40 0px><span bnbdh=lc778>W BC</span> (02/06/2025)</t d> <td>5.0</td> <td>5.0</td> <td>4.0 K/uL - 9.8 K/uL</td></tr> Learning About Depression Screening material was printed History of breast cancer, status post mastectomy in 2014. No evidence of recurrence discussed. Heavy menstrual bleeding after stopping control pill due to stroke risk. IUD placed, ovarian cyst found, pending biopsy. - Follow up with OBGYN for biopsy results and cyst evaluation. Hyperlipidemia managed with atorvastatin 40 mg. - Continue atorvastatin 40 mg. Plan Of Treatment Next Appt Details Provider Name:Rylan Berry , 08/28/2025 02:45:00 PM, [facility], [address], [address], Provider Name:Milton amaya, 08/30/2025 02:00:00 PM, [address], [place], [address], Insurance Providers Payer Name Payer Address Payer Phone Subscriber Number Group Number Insured Name Patient Relationship to Insured Coverage Start Date Coverage End Date [facility] [address] [place] [address] [id number] Melodie Loredoo Self - patient is the insured Medical (General) History Medical History History ICD Code Past Psychiatric History: Anxiety Disord er,Panic Disorder,PTSD Test Name (Performed Date) F indings EKG 12-LEAD (02/06/2025) Rate: 80 P: 67 VT: 180 QRS: 26 QRSD: 70 T: 53 QT: 352 QTc: 405 Normal sinus rhythm. Possible left atrial enlargement. Borderline ECG. No previous ECG available for comparison. Breast cancer, mastectomy in 2014 Stroke, june 2025 Severe depression Anxiety disorder Ptsd symptoms Hyperlipidemia History of stroke, left-sided symptoms Surgical History Surgery Date(Month/Year) mastectomy 2014 mastectomy Mastectomy, right side, for breast cance r - 2014 Hospitalization History Reason Date(Month/Year) Stroke, [facility], 06/2025
--- OUTSIDE RECORDS SUMMARY | 2025-08-15 09:58 | XMS_ITS | Clinical Summary ---
Author Organization [facility] Address [address] [place] [phone] Phone Care Team Providers Care Eyeglass Frame Truer Name Role Phone Unavailable Primary Care Provider [...] Encounters Date Type Department Care Team Description 08/09/2025 External Device Data [facility] ABSTRACTION Provider, Abstract 08/08/2025 External Device Data [facility] ABSTRACTION Provider, Abstract 07/26/2025 External Device Data [facility] ABSTRACTION Provider, Abstract 07/25/2025 External Device Data [facility] ABSTRACTION Provider, Abstract 06/20/2025 External Device Data [facility] ABSTRACTION Provider, [...] 2022 INFLUENZA VACCINE (#1) 2025 COVID-19 Vaccine ( - 2024- season) 2025, 06/05/2021 Insurance [facility] BLUE ACCESS CHOICE
--- OUTSIDE RECORDS SUMMARY | 2025-08-15 09:58 | XMS_ITS | Clinical Summary ---
Author Organization [facility] Address [address] [place] [address] Care Team Providers Care Guitar Teacher Name Role Phone Unavailable Primary Care Provider Unavailabl e Source Comments [facility],non-owned Affiliates and Associated Physician Practices is amultiple site organization consisting of ambulatory clinics and hospital sitesin [place], [place], [place] and [place]. This disclosure is being madepursuant to the Care Everywhere program and may not contain all information available regarding this patient. 

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
--- OUTSIDE RECORDS SUMMARY | 2025-08-15 09:58 | XMS_ITS | Clinical Summary ---
Author Organization [facility] Address [address] [place] [address] Care Team Providers Care Gallery Or Museum Curator Name Role Phone Alyssa Nelson Primary Care Provider + Allergies No known active allergies Medications cyanocobalamin (Vitamin B-12) 1,000 mcg/mL injection INJECT 1ML INTO THE MUSCLE EVERY 3 WEEKS Active escitalopram (LEXAPRO) 10 mg tablet 4 Active hydrOXYzine (ATARAX) 25 mg tablet Take one tablet as daily needed for anxiety. 4 Active BD Luer-Landy Syringe 3 mL 25 gauge x 1 syringe TO USE B12 IN THE MUSCLE EVERY 3 WEEKS 4 Active UNABLE TO FIND B-D 3CC LUER-LANDY SYR 25GX1 25G X 1 3 ML MISC 4 Active ergocalciferol (VITAMIN D) 50,000 unit capsule Take 1.25 mg by mouth once a week 5 Active Zepbound 5 mg/0.5 mL pen injector Inject 0.5 mL (5 mg total) under the skin once a week 5 Active medroxyPROGESTE Ricky (PROVERA) 10 mg tablet Take 1 tablet (10 mg total) by mouth 3 (three) times a day 15 tablet 5 Active LORazepam (ATIVAN) 1 mg tabletIndicatio ns:pre-procedur e medications Take one tablet by mouth 30 mins prior to procedure 1 tablet 5 Active atorvastatin (LIPITOR) 40 mg tablet Take 1 tablet (40 mg total) by mouth daily 5 Active aspirin 81 mg enteric coated tablet Take 1 tablet (81 mg total) by mouth daily 5 Active tirzepatide, weight loss, (ZEPBOUND) 7.5 mg/0.5 mL pen injector Inject 0.5 mL (7.5 mg total) under the skin once a week 5 Active clopidogreL (PLAVIX) 75 mg tablet Take 1 tablet (75 mg total) by mouth daily 5 Active busPIRone (BUSPAR) 10 mg tablet Take 0.5 tablets (5 mg total) by mouth daily Active ondansetron (ZOFRAN) 8 mg tablet Take 1 tablet (8 mg total) by mouth every 8 (eight) hours as needed for nausea 5 Active escitalopram (LEXAPRO) 20 mg tablet Take 1 tablet (20 mg total) by mouth daily 5 Active medroxyPROGESTE Ricky (PROVERA) 10 mg tablet Take 1 tablet (10 mg total) by mouth daily for 10 days 11 tablet 5 07/20/20 25 Discontinu ed(Reorder ) doxycycline 100 mg capsuleIndicati ons:Adenomyosis ,Endometritis Take 1 tablet/capsul e (100 mg total) by mouth 2 (two) times a day for 10 days 20 capsule 5 08/11/20 25 Hospital, Clinic, or Other Facility Administered Medication Ordered Dose Route Frequency Start Date End Date Status levonorgestreL (MIRENA) 21 mcg/24hr (up to 8 yrs) 52 mg IUD 1 eachIndications:Ab normal Uterine Bleeding 1 each intrauterine Continuous (implanted device) 07/24/2025 0 Active Active Problems Problem Noted Date Diagnosed Date Transient ischemic attack 07/24/2025 Plexopathy 07/24/2025 Elevated blood pressure read ing without diagnosis of hypertension 07/24/2025 Back pain 07/24/2025 Sickle cell disease without crisis 07/24/2025 Bulky or enlarged uterus 02/25/2025 Cervicalgia 02/21/2025 Adenomyosis 04/04/2024 Iron deficiency anemia 04/04/2024 Abnormal uterine bleeding 03/16/2024 Mixed hyperlipidemia 07/16/2023 Anxiety 08/22/2022 Absence of breast, acquired, right 08/15/2020 Overview (08/15/2020): Added automatically from request for surgery [id number] Hx of breast cancer 08/25/2019 Overview (08/25/2019): Added automatically from request for surgery [id number] Deformity of breast after mastectomy 08/25/2019 Overview (08/25/2019): Added automatically from request for surgery [id number] Abnormal computed tomography scan 08/10/2015 Dysmenorrhea 08/10/2015 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 Umbilical mass 06/22/2015 Goiter 06/21/2015 Umbilical pain 03/07/2015 Obesity 03/15/2014 Stress incontinence in female 11/28/2013 Resolved Problems Problem Noted Date Diagnosed Date Resolved Date Intramural leiomyoma of uterus 02/25/2025 02/25/2025 Hx of breast reconstruction 12/05/2019 04/04/2024 Overview (12/05/2019): Added automatically from request for surgery [id number] Encounters Date Type Department Care Team Description 08/01/2025 Results Follow-Up [facility] [address] [place] [address] Sukhjinder Ramírez MD Surgical pathology 07/27/2025 10:13 AM CDT - 07/27/2025 11:59 PM CDT Hospital Encounter [facility] ([facility] [address] [place] [address] Diagnosis unknown Discharge Disposition: Discharge to home or self care 07/27/2025 10:12 AM CDT - 07/27/2025 11:59 PM CDT Hospital Encounter [facility] ([facility]) [address] [place] [address] Discharge Disposition: Discharge to home or self care 07/27/2025 10:10 AM CDT - 07/27/2025 11:59 PM CDT Hospital Encounter [facility] ([facility]) [address] [place] [address] Discharge Disposition: Discharge to home or self care 07/24/2025 8:00 AM CDT Office Visit [facility] Obstetrics and Gynecology [facility] 7th Floor [address] [place] [address] Sukhjinder Ramírez MD Abnormal uterine bleeding (Primary Dx); Adenomyosis; Dysmenorrhea; Bulky or enlarged uterus; Class 1 obesity due to excess calories without serious comorbidity with body mass index (BMI) of 31.0 to 31.9 in adult; Iron deficiency anemia due to chronic blood loss; Anxiety; Sickle cell disease without crisis (HCC); 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 Orders Only [facility] Pathology Outreach [address] [place] [address] Sukhjinder Ramírez MD Abnormal uterine bleeding; Adenomyosis; Dysmenorrhea; Bulky or enlarged uterus 07/15/2025 Results Follow-Up [address] [phone] Zeenat Saavedra MD CBC without differential, Ferritin, Comprehensive metabolic panel 07/13/[address] [phone] Zeenat Saavedra MD 07/10/2025 Patient Self-Triage [facility] [address] [place] [phone] Mychart, Generic Provider 07/10/2025 Patient Self-Triage [facility] [address] [place] [phone] Mychart, Generic Provider 07/03/2025 Telephone [facility] Medicine Obstetrics and Gynecology [address] [place] [address] 7th [address] [place] [address] Mena Nowak RN Med Change Request from Last 3 Months Immunizations Immunization Administration Dates Next Due Td, Not Adsorbed 12/01/2012 Surgical History Surgery Date Site/Laterality Comments HI DELIVERY ONLY Section - (Added by TW [...] on file Legal Sex 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 Gender Identity Not on file Sexual Orientation [...] Sign Reading Time Taken Comments Blood Pressure 118/73 07/24/2025 8:07 AM CDT Pulse 67 03/31/2023 12:45 PM CDT Temperature 36.8 C (98.3 F) 05/06/2014 11:17 PM CDT Respiratory Rate 16 03/31/2023 12:45 PM CDT Oxygen Saturation 98% 03/31/2023 12:45 PM CDT Inhaled Oxygen Concentration - - Weight 77 kg (169 lb 12.8 oz) 07/24/2025 8:07 AM CDT Height 157.5 cm (5' 2.01) 07/24/2025 8:07 AM CD T Body Mass Index 31.05 07/24/2025 8:07 AM CDT Plan of Treatment Health Maintenance Due Date Last Done Comments Breast Cancer Screening-Mammogram 1970 Colon Cancer Screening-Colonoscopy 1970 Depression Screening 1972 Meningococcal B Vaccine (1 o f 4 - Increased Risk) 1982 Hepatitis B Screening 1990 Pneumococcal vaccine <65 (1 of 2 - PCV) 1991 DTaP/Tdap/Td Vaccine (1 - Tdap) 12/02/2012 3 Covid-19 Vaccine (3 - Pfizer risk series) 08/01/2021 07/04/2021, 06/05/2021 Zoster Vaccine (1 of 2) 2022 Regular Well Visit/Exam 18-64 03/31/2024 03/31/2023, 08/06/2020 Cervical Cancer Screening 03/16/2025 03/16/2024, 09/2024 Influenza Vaccine (#1) 2025 Hepatitis C Screening Completed 04/01/2023, 021 Procedures Procedure Name Priority Date/Time Associated Diagnosis Comments NEURO CT OUTSIDE CONSULT Routine 07/27/2025 10:13 AM CDT Diagnosis unknown NEURO CT OUTSIDE REFERENCE Routine 07/27/2025 10:12 AM CDT NEURO MR OUTSIDE REFERENCE Routine 07/27/2025 10:10 AM CDT SURGICAL PATHOLOGY Routine 07/24/2025 9: 24 AM CDT Abnormal uterine bleeding Adenomyosis Dysmenorrhea Bulky or enlarged uterus POCT HCG, URINE Routine 07/24/2025 8:16 AM CDT Abnormal uterine bleeding COMPREHENSIVE METABOLIC PANEL Routine 07/14/2025 6:02 AM CDT Abnormal uterine bleeding FERRITIN Routine 07/14/2025 6:02 AM CDT Abnormal uterine bleeding CBC WITHOUT DIFFERENTIAL Routine 07/14/2025 6:02 AM CDT Abnormal uterine bleeding HIGH RISK HPV DNA DETECTION WITH GENOTYPING Routine 03/16/2024 5:07 PM CDT Abnormal uterine bleeding HEPATITIS C ANTIBODY Routine 04/01/2023 7:48 AM CDT Routine screening for STI (sexually transmitted infection) from Last 3 Months or Most Recently Relevant to Health Maintenance Results * Neuro CT Outside Consult (07/27/2025 10:13 AM CDT) Anatomical Region Laterality Modality N/A Computed Tomogra phy 07/27/2025 10:4 1 AM CDT Impressions 07/27/2025 10:41 AM CDT No acute intracranial process. The findings, conclusions and recommendations within this report do not replace the initial findings, conclusions and recommendations made at the facility where the study was performed based upon the imaging and clinical condition at that time. Comparison with the prior report and clinical history is necessary. The provided images may or may not represent the [place] source data set and thus may contain changes that may lower the accuracy of this second-opinion interpretation. Electronically signed by: MD Liz Mejía 07/27/2025 10:41 AM CDT EXAMINATION: RADIOLOGY CONSULTATION ON OUTSIDE IMAGING STUDY STUDY INITIALLY PERFORMED: 06/27/2025 at [facility]. TYPE OF STUDY: Multiple CT images of the head without IV contrast are provided at the time of this interpretation. CONTRAST ROUTE: No contrast was administered. The protocol was adequate to address the clinical question. The outside final report was not available at the time of this second opinion interpretation. TYPE OF CONSULTATION: Consult on outside imaging study with images submitted through Outside Image Sharing Service DATE OF CONSULTATION: 07/27/2025 10:38 AM HISTORY: 54 y.o. with PMH significant for anxiety, C/S x2, possible TIA vs plexopathy admitted to [facility] in [place], [place] 06/27/25 w/ resolved right-sided weakness, who has AUB-O,A previously managed by Dr. Saavedra w/ 5mg COURT for nearly 8 months and reports periods stopped completely. She reports after admission to [facility] they recommended stopping the 5mg COURT and was switched to 10mg MPA due to c/f thrombosis who presents for EMBx and IUD insertion for eval/mgmt of AUB. She did start having inc'd bleeding on MPA and was recommended to increase MPA to BID or TID, but she reports bleeding reduced on 10mg MPA daily. She has also had consultation w/ Dr. Stuart for TLH, but decided to hold of on hysterectomy as bleeding had stopped on COURT. COMPARISON: None available. FINDINGS: There is no acute intracranial hemorrhage. The ventricles are normal in size. No mass effect or midline shift. The viera-white matter differentiation is maintained. Partially empty sella. The orbits are within normal limits. Paranasal sinuses and mastoid air cells are clear. No acute fractures. Procedure Note Leta Albarado MD PhD - 07/27/2025 EXAMINATION: RADIOLOGY CONSULTATION ON OUTSIDE IMAGING STUDY STUDY INITIALLY PERFORMED: 06/27/2025 at [facility]. TYPE OF STUDY: Multiple CT images of the head without IV contrast are provided at the time of this interpretation. CONTRAST ROUTE: No contrast was administered. The protocol was adequate to address the clinical question. The outside final report was not available at the time of this second opinion interpretation. TYPE OF CONSULTATION: Consult on outside imaging study with images submitted through Outside Image Sharing Service DATE OF CONSULTATION: 07/27/2025 10:38 AM HISTORY: 54 y.o. with PMH significant for anxiety, C/S x2, possible TIA vs plexopathy admitted to [facility] in [place], [place] 06/27/25 w/ resolved right-sided weakness, who has AUB-O,A previously managed by Dr. Saavedra w/ 5mg COURT for nearly 8 months and reports periods stopped completely. She reports after admission to [facility] they recommended stopping the 5mg COURT and was switched to 10mg MPA due to c/f thrombosis who presents for EMBx and IUD insertion for eval/mgmt of AUB. She did start having inc'd bleeding on MPA and was recommended to increase MPA to BID or TID, but she reports bleeding reduced on 10mg MPA daily. She has also had consultation w/ Dr. Stuart for TLH, but decided to hold of on hysterectomy as bleeding had stopped on COURT. COMPARISON: None available. FINDINGS: There is no acute intracranial hemorrhage. The ventricles are normal in size. No mass effect or midline shift. The viera-white matter differentiation is maintained. Partially empty sella. The orbits are within normal limits. Paranasal sinuses and mastoid air cells are clear. No acute fractures. IMPRESSION: No acute intracranial process. The findings, conclusions and recommendations within this report do not replace the initial findings, conclusions and recommendations made at the facility where the study was performed based upon the imaging and clinical condition at that time. Comparison with the prior report and clinical history is necessary. The provided images may or may not represent the [place] source data set and thus may contain changes that may lower the accuracy of this second-opinion interpretation. Electronically signed by: Leta Albarado MD Sukhjinder Almendarez MD IMG CT PROCEDURES Final Re sult * Neuro CT Outside Reference (07/27/2025 10:12 AM CDT) Impressions [facility] - 07/27/2025 10:12 AM CDT These images are for Reference purposes only and have not been reviewed by [facility]. There will be no report generated by a [facility]iologist. Narrative [facility] - 07/27/2025 10:12 AM CDT EXAMINATION: Images For Reference Purposes Only Sukhjinder Almendarez MD IMG CT PROCEDURES Final Re sult [facility] * Neuro MR Outside Reference (07/27/2025 10:10 AM CDT) Impressions [facility] - 07/27/2025 10:10 AM CDT These images are for Reference purposes only and have not been reviewed by [facility]. There will be no report generated by a [facility] Radiologist. Narrative [facility] - 07/27/2025 10:10 AM CDT EXAMINATION: Images For Reference Purposes Only us Sukhjinder Almendarez MD IMG MRI PROCEDURES Final R esult [facility] * Surgical pathology (07/24/2025 9:24 AM CDT) Tissue (Endometrial biopsy) 07/24/2025 9:24 AM CDT 07/24/2025 11:02 AM CDT Narrative [facility] - 07/26/2025 2:39 PM CDT Results in EPIC best viewed via PDF link [facility] [address] [place] [address] Note to Patients: This report may contain a detailed description of human tissue sent by a health care provider to the laboratory for pathologic evaluation. The content of this report is essential for diagnosis and may provide important critical findings. This information may be unfamiliar to patients to review without a medical professional present. It is advised that the patient review this report in the presence of a health care provider who can answer questions and explain the details. SURGICAL PATHOLOGY REPORT FINAL Patient Name: REBECCA LOREDO Address: [address] [place], [place] [id number] Gender: F : 1970 (Age: 54) Service: [facility] Location: UNKNOWN Hospital #: [id number] Taken: 07/24/2025 Received: 07/24/2025 Accessioned: 07/24/2025 Reported: 07/26/2025 Physician(s): Sukhjinder Ramírez M.D. Diagnosis: Uterus, endometrium, biopsy - Asynchronous pattern, consistent with exogenous hormone therapy - Chronic endometritis - Strips of inflamed endocervical epithelium - No evidence of endometrial hyperplasia or malignancy exc207/25/2025 08:57 By this signature, I attest that the above diagnosis is based upon my personal examination of the slides(and/or other material indicated in the diagnosis). Rambo Mejia M.D., Ph.D. Report Electronically Reviewed and Signed Out By Rambo Mejia M.D., Ph.D. 07/26/2025 14:39:10 Microscopic Description and Comment: Unless gross-only is specified, the final diagnosis for each specimen is based on a microscopic examination of each tissue sample. Emma Mayberry M.D. History: The patient is a 54-year-old woman with a history of abnormal uterine bleeding, adenomyosis, dysmenorrhea, and an enlarged uterus. Operative procedure: EMBx Specimen(s) Received: A: EMBx Gross Description: The specimen is received in a formalin-filled container labeled [place], Rebecca and EMBx and consists of multiple fragments of freitas and hemorrhagic tissue measuring 2.9 x 1.4 x 0.3 cm in aggregate. Labeled A1. Jar 0. Kathleen Thomas bx/07/24/2025 13:17 Pathology services are provided by the Department of Pathology and Immunology at [facility], [address] [place] [id number] CLIA # [id number] The performance characteristics of the testing cited in this report (if any) were determined by the [facility] Department of Pathology and Immunology [facility], as part of an ongoing quality improvement coordinator (rn) program and in compliance with federally mandated regulations drawn from the Clinical Laboratory Improvement Act of 1988 (CLIA '88). Some of these tests rely on the use of analyte specific reagents (ASR) and are subject to specific labeling requirements by the US Food and Drug Administration. Such diagnostic tests may only be performed in a facility that is certified by the Department of Health and Human Services as a high complexity laboratory under CLIA '88. The FDA has determined that such clearance or approval is not necessary. ASRs should not be regarded as investigational or for research. ASRs were developed and the performance characteristics determined by the [facility], [facility] Department of Pathology and Immunology. It has not been cleared or approved by the U.S. Food and Drug Administration. Any test designated as LDT was developed and its performance characteristics determined by [facility]. It has not been cleared or approved by the FDA. This test is used for clinical purposes and should not be regarded as investigational or for research. Sukhjinder Ramírez MD LAB PATHOLOGY ORDERABLES F inal Result [facility] [address] [address] * POCT hCG, urine (07/24/2025 8:16 AM CDT) HCG, ur, POC Negative Negative Lot Number [id number] QC Backgroud Clear Acceptable QC Control Line Acceptable Urine 07/24/2025 8:16 AM CDT us Sukhjinder Ramírez MD POINT OF CARE TEST ORDERAB LES Final Result * (ABNORMAL) CBC without differential (07/14/2025 6:02 AM CDT) Pathologist [facility] WBC 5.8 3.8 - 10.8 Thousand/u L [facility] RBC, POC 4.01 3.80 - 5.10 Million/uL [facility] Hgb 9.9(L) 11.7 - 15.5 g/dL [facility] Hct 31.9(L) 35.0 - 45.0 % [facility] MCV 79.6(L) 80.0 - 100.0 fL [facility] MCH 24.7(L) 27.0 - 33.0 pg [facility] MCHC 31.0(L) 32.0 - 36.0 g/dL [facility] Comment: For adults, a slight decrease in the calculated MCHC value (in the range of 30 to 32 g/dL) is most likely not clinically significant; however, it should be interpreted with caution in correlation with other red cell parameters and the patient's clinical condition. Rdw 14.7 11.0 - 15.0 % [facility] Platelets 320 140 - 400 Thousand/u L [facility] MPV 9.8 7.5 - 12.5 fL [facility] Blood 07/14/2025 6:02 AM CDT 07/14/2025 6:03 AM CDT Narrative [facility] - 07/15/2025 3:10 AM CDT FASTING:YES FASTING: YES us Zeenatmichelle Saavedra MD LAB BLOOD ORDE GASTON Final Result [facility] [address] [place] [address] * Ferritin (07/14/2025 6:02 AM CDT) Pathologist [facility] Ferritin 16 16 - 232 ng/mL [facility] Blood 07/14/2025 6:02 AM CDT 07/14/2025 6:03 AM CDT Narrative [facility] - 07/15/2025 3:10 AM CDT FASTING:YES FASTING: YES us Zeenatmichelle Saavedra MD LAB BLOOD ORDE GASTON Final Result Performing Organization Address [facility]/ZIP Co de Phone Number ANIL [facility] [address] [facility] [place] [address] * (ABNORMAL) Comprehensive metabolic panel (07/14/2025 6:02 AM CDT) [facility] Glucose 100(H) 65 - 99 mg/dL [facility] Comment: Fasting reference interval For someone without known diabetes, a glucose value between 100 and 125 mg/dL is consistent with prediabetes and should be confirmed with a follow-up test. BUN 13 7 - 25 mg/dL [facility] Creatinine 0.86 0.50 - 1.03 mg/dL [facility] eGFR 81 > OR = 60 mL/min/1.7 3m2 [facility] BUN/creat ratio SEE NOTE: 6 - 22 (calc) [facility] Comment: Not Reported: BUN and Creatinine are within reference range. Sodium 141 135 - 146 mmol/L [facility] Potassium, pl 3.6 3.5 - 5.3 mmol/L [facility] Chloride 108 98 - 110 mmol/L [facility] CO2 26 20 - 32 mmol/L [facility] Calcium 8.6 8.6 - 10.4 mg/dL [facility] Protein, sr 6.1 6.1 - 8.1 g/dL [facility] Albumin 3.7 3.6 - 5.1 g/dL [facility] GLOBULIN 2.4 1.9 - 3.7 g/dL (calc) [facility] Alb/glob ratio 1.5 1.0 - 2.5 (calc) [facility] Bilirubin, total 0.5 0.2 - 1.2 mg/dL [facility] Alk phos 33(L) 37 - 153 U/L [facility] AST 37(H) 10 - 35 U/L [facility] ALT (SGPT) 44(H) 6 - 29 U/L [facility] Blood 07/14/2025 6:02 AM CDT 07/14/2025 6:03 AM CDT Narrative [facility] - 07/15/2025 3:10 AM CDT FASTING:YES FASTING: YES Zeenat Tequila Saavedra MD LAB BLOOD ORDSaul FELDMAN Final Result [facility] [address] [place] [address] * High Risk HPV DNA Detection with Genotyping (Molecular component) (03/16/2024 5:07 PM CDT) Pathologist [facility] HPV HR 16 Not Detected Not Detected [facility] HPV HR 18 Not Detected Not Detected [facility] HPV HR Non 16/18 Not Detected Not Detected [facility] Comment: Interpretive Data Nucleic acid amplification for [...] this test have been verified by the [facility] Molecular Infectious Disease laboratory. Correlate with separately reported cytology results, as applicable. Interpretive data last revised 23 Endocervical 03/16/2024 5:07 PM CDT 03/17/2024 3:20 PM CDT Narrative ROSHANKARLO [facility] - 03/18/2024 5:53 AM CDT Clinical history and diagnosis->abnormal uterine bleeding, no hx dysplasia Number of vials->1 Testing type->Screening Last menstrual period (date if known)->current us Zeenat Saavedra MD LAB BODY FLUID S AND STOOLS ORDERABLES Final Result Performing Organization Address [facility] Co de Phone Number JASON [facility] Department [place] [address] [facility] * Hepatitis C antibody (04/01/2023 7:48 AM CDT) Hep C Ab NON-REACTI VE NON-REACT [facility] Comment: HCV antibody was non-reactive. There is no laboratory evidence of HCV infection. In most cases, no further action is required. However, if recent HCV exposure is suspected, a test for HCV RNA (test code 80692) is suggested. For additional information please refer to http://education.Previstar.Qeexo/faq/UWZ67g7 (This link is being provided for informational/ educational purposes only.) Blood 04/01/2023 7:48 AM CDT 04/01/2023 7:49 AM CDT us Trish Crawford NP LAB MICROBIOLOGY - GENE RAL ORDERABLES Final Result Performing Organization Address City/[facility] Co de Phone Number [employer] [id number] Jim [phone] from Last 3 Months or Most Recently Relevant to Health Maintenance Insurance BLUE [employer] [place] BLUE ACC CHOICE OOS BLUE ACC CHOICE OOS BLUE ACC CHOICE OOS BLUE [facility] Care Teams Gallery [employer] Curator Relationship Specialty Start Date End Date Alyssa Nelson PA [address] [place] [id number] PCP - General Nurse Practitioner 07/26/25
--- NOTE | 2025-08-15 10:00 | NEURO_ITS ---
Impression: # Complains of numbness. ? # No Carpal Tunnel Syndrome ? # Bilateral Ulnar Neuropathy across the elbow ? # Needle/ EMG exam not done. ? # Clinical Correlation recommended. Nerve Conduction Studies ?Stim Site NR Peak (ms) P-T Amp (?V) Site1 Site2 Delta-P (ms) Dist (cm) Darren (m/s) Left Median Anti Sensory (2-3nd Digit) Wrist ? 3.0 41.8 Wrist 2-3nd Digit 3.0 14.0 47 Wrist ? 2.8 42.8 Wrist 2-3nd Digit 3.0 14.0 47 Right Median Anti Sensory (2-3nd Digit) Wrist ? 2.7 44.4 Wrist 2-3nd Digit 2.7 14.0 52 Wrist ? 2.7 43.6 Wrist 2-3nd Digit 2.7 14.0 52 Left Radial Anti Sensory (Base 1st Digit) Wrist ? 1.7 20.7 Wrist Base 1st Digit 1.7 0.0 Right Radial Anti Sensory (Base 1st Digit) Wrist ? 2.0 15.8 Wrist Base 1st Digit 2.0 0.0 Left Sup Fibular Anti Sensory (Ant Lat Mall) 14 cm ? 3.2 9.7 14 cm Ant Lat Mall 3.2 16.0 50 Right Sup Fibular Anti Sensory (Ant Lat Mall) 14 cm ? 3.3 6.7 14 cm Ant Lat Mall 3.3 16.0 48 Left Sural Anti Sensory (Lat Mall) Calf ? 3.8 8.4 Calf Lat Mall 3.8 16.0 42 Right Sural Anti Sensory (Lat Mall) Calf ? 3.8 2.4 Calf Lat Mall 3.8 16.0 42 Left Ulnar Anti Sensory (5th Digit) Wrist ? 2.6 34.5 Wrist 5th Digit 2.6 14.0 54 Right Ulnar Anti Sensory (5th Digit) Wrist ? 2.4 35.0 Wrist 5th Digit 2.4 14.0 58 ?Stim Site NR Onset (ms) O-P Amp (mV) Site1 Site2 Delta-0 (ms) Dist (cm) Darren (m/s) Left Median Motor (Abd Poll Brev) Wrist ? 2.6 9.7 Elbow Wrist 5.0 29.0 58 Elbow ? 7.6 9.0 Right Median Motor (Abd Poll Brev) Wrist ? 2.2 8.3 Elbow Wrist 4.8 29.0 60 Elbow ? 7.0 5.5 Left Peroneal Motor (Vastus Med) Ankle ? 3.6 4.9 Popit Ankle 8.0 41.0 51 Popit ? 11.6 3.8 Right Peroneal Motor (Vastus Med) Ankle ? 3.4 8.3 Popit Ankle 7.2 37.0 51 Popit ? 10.6 9.7 Left Tibial Motor (Abd Centeno Brev) Ankle ? 3.9 1.3 Knee Ankle 8.9 40.0 45 Knee ? 12.8 2.6 Right Tibial Motor (Abd Centeno Brev) Ankle ? 3.7 2.8 Knee Ankle 7.4 37.0 50 Knee ? 11.1 2.4 Left Ulnar Motor (Abd Dig Minimi) Wrist ? 2.3 6.2 A Elbow Wrist 5.4 31.0 57 A Elbow ? 7.7 5.4 B Elbow Wrist 3.6 21.0 58 B Elbow ? 5.9 4.4 Right Ulnar Motor (Abd Dig Minimi) Wrist ? 2.7 9.8 A Elbow Wrist 5.3 30.0 57 A Elbow ? 8.0 5.8 B Elbow Wrist 3.0 19.0 63 B Elbow ? 5.7 7.7 F Wave Studies ?NR F-Lat (ms) L-R F-Lat (ms) Left Median (Mrkrs) (Abd Poll Brev) ? 25.09 0.49 Right Median (Mrkrs) (Abd Poll Brev) ? 25.58 0.49 Left Peroneal (Mrkrs) (EDB) ? 45.31 1.45 Right Peroneal (Mrkrs) (EDB) ? 43.86 1.45 Left Tibial (Mrkrs) (Abd Hallucis) ? 45.75 0.24 Right Tibial (Mrkrs) (Abd Hallucis) ? 45.51 0.24 Left Ulnar (Mrkrs) (Abd Dig Min) ? 27.85 0.11 Right Ulnar (Mrkrs) (Abd Dig Min) ? 27.74 0.11
== END 2025-08-15 09:34 | disposition home or self-care (01) ==
LOC: ANHNEURO 09:36
PROVIDERS: PCP Registered Nurse; Visit Provider Psychiatry & Neurology Neurology
DX: R20.0 Anesthesia of skin (principal); G56.23 Lesion of ulnar nerve, bilateral upper limbs
CPT/HCPCS: 95913